=== PATIENT | female | born 1965 | race Caucasian/White ===

== ENCOUNTER 2017-11-01 09:00 | Outpatient (RCR) | payer OTHER, SELFPAY ==
--- NOTE | 2017-11-01 09:07 | BH.SGPN.GN ---
Number of participants: 6 Behaviors/Verbalizations/Mental Status: []Client alert and oriented, neatly dressed and groomed. Speech within normal limits. Good eye contact. Motor activity restless. Mood depressed and anxious, affect constricted, tearful. Thoughts linear and logical, no signs of hallucinations or delusions. Therapist reviewed clients symptom tracker to assess for intensity of mental health symptoms and identify risk for suicide. No signs of suicidal ideation, plan, or intent to date. Client Response/Progress/Benefit: []Client responded well to session, laughing and receptive to support from peers. Client reports feeling mixed emotions this morning, as client continues to struggle with hopelessness and thinking how can I deal with this. Client shared with the group that she had a stroke two years ago which turned my world upside down. Client reported she has been depressed since the stroke as client can no longer do the things she used to do due to tremors, double vision, and other medical challenges. Client stated she hopes to learn ways to make her new life meaningful and find new things to do. Client was receptive to emotional support and validation provided by therapist and peers. Clients first day of IOP, to continue to prevent decompensation and reduce depression.
--- NOTE | 2017-11-01 10:20 | BH.SGPN.GN ---
Behaviors/Verbalizations/Mental Status: []Pt eye contact good, casual dress, speech and tone appropriate, tremors due to stroke hx, thoughts linear and intact, no evidence of delusions or hallucinations, mood anxious. Client Response/Progress/Benefit: [] Pt passive participant, did not share her thoughts or ideas throughout group discussion appeared to listen to others. Pt did engage in group activity despite pt stating she didn't think she could do it with her tremors, but was able to participate more than she had expected. Pt seemed to connect with others about the importance and benefits of having a positive social support AEB pt nodding her head. Pt's passive participation could be attributed to it being pt's first day in IOP. Pt seemed to benefit from support by peers.
--- NOTE | 2017-11-01 13:52 | BH.PSA ---
Source of Information - Presenting Problems/Circumstances Problems, Referral Source, Mental Status, Client: Client is a 52-year-old female who was referred by her outpatient psychiatrist at [facility] due to worsening depression and anxiety symptoms. Client had a stroke in 2016 while getting ready for a 50km long distance race. Client stated the stroke ?completely flipped my world upside-down.? Client denies psychiatric symptoms prior to the stoke. Client?s mental, cognitive, and physical functioning have all been impacting since the stroke. Client currently endorses a depressed mood with anhedonia, loss of appetite, decreased energy, and isolation. Client shared ?I just sit at home and stare at the [place].? 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 Client reported ?I feel like a burden to my family.? Client endorses ruminative anxiety about her appearance, functioning, and inability to be the caregiver she wants to be. Client was cooperative during assessment, alert and oriented. Client has a tremor from the stroke causing restlessness. Client?s speech was slurred due to stroke and reports short-term memory issues. Psychiatric Presentation - Psych Issues & Need for Admission Psychiatric Issues:: Major depressive disorder single episode moderate F 33.1; Anxiety unspecified. Isolation, rumination, depressed mood, and anhedonia. Past Psychiatric History - Treatment Hx Treatment History: client currently sees Tatiana Hutson at [facility] for outpatient psychiatric care and Ashley at [facility]. Client has been seeing Ashley for about a year. Client has had previous medication trials but is unable to remember details. First hospitalization:: denies hospitalizations Most recent hospitalization:: denies hospitalizations Medication Trials:: Yes - Zoloft, Klonopin, Ativan ECT Therapy:: No Age of first mental health symptoms: Client denies mental health symptoms prior to her stroke. Client reported I was never depressed or anything before this. Client shared her mental health symptoms started almost two years ago after the CVA. Describe (age, circumstance, etc) any past hospitalizations: client denies history of suicide attempts and psychiatric hospitalizations. Current providers for mental health treatment (counselor, psychiatrist, director of casework, etc.): Client currently seeing Ashley at [facility]. Client is also seeing Tatiana Hutson at [facility] for psychiatric services. Development & Family of Origin - Childhood Significant Childhood Events: Client described her childhood as wonderful. Client was born and raised mostly in [place], but she did move around as a teenager and lived in [place] and [place] for some time in the 1980s due to her father's job. - Family Who currently lives in your home?: Client currently lives in [place] with her , Dash, and their dog Caldwell. Client identified their dog as one of her primary supports. Describe family composition:: Client described her family as close. Client has two older brothers, four children ranging from 22 years old to 32 years old, and nine grandchildren. Client reported she loves her children and grandchildren, but she often feels like a burden to them stating, I'm not the mother and grandmother they deserve due to client's limitations post stroke. Client has been twice. The first marriage lasted 25 years and her four children are from that marriage. Client is currently to Dash, and the two have been now for five years. Client described the relationship as ekaterina sharing the two met through their mutual love of running. - Family History Family Hx of Psychiatric or AOD Problems: Client denies family history of AOD and psychiatric problems. Ethnicity - Culture Do you identify yourself with any particular cultural, ethnic background, or community?: No - Sexuality Sexual Orientation: Heterosexual Spirituality - Hinduism Do you currently identify with any organized jain?: Church - Client and her attend [facility]. 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 Mental Status - Memory Recent Memory: Poor Remote Memory: Fair - Concentration Concentration: Fair - Eye Contact Eye Contact: Scans - Speech Speech: Soft - slurred due to stroke - Thought Process Thought Process: Ruminations Insight: Fair Judgment: Fair Behavior: Anxious - Client restless throughout due to a tremor from her stroke. - Orientation Orientation: Time, Person, Place, Situation - Appearance Appearance: Neat/clean - Mood Mood: Anxious, Depressed - Affect Affect: Constricted - Additional Information Significant Findings/Observations Checked Above:: CVA affected right side causing weakness, speech deficit, short-term memory difficulty, visual problems. Client has residual right-sided tremors and double vision. Suicide Assessment - Suicidal Ideation Have you ever felt like hurting yourself?: No Were you using ETOH/drugs at the time?: No Suicidal Intentional Rating Scale (SIRS): No suicidal thoughts (past or present) - Client denies suicidal thoughts, but reports passive thoughts of sharing, if I don't wake up tomorrow that would be okay. Client reports her jain and her family prevent her from even thinking about suicide. Physician Notification: If Active suicidal thoughts/Will not contract for safety is checked, contact physician and document in the Physician Notification section below. Violent Behavior/Abuse History - Homicidal Ideation Do you have any homicidal thoughts? If so, explain:: No Is there a known potential victim? If yes, who:: No - Abuse Have you ever been abused?: No - Life Events Are there any other significant life events?: Hardships - Client had a stroke in 2016 while training for a long distance race. She has grief associated with physical limitations and loss of activities including running and work. Client shared feeling like a burden as she has to rely more on others whereas before client was used to taking care of everyone. - Safety Do you ever feel threatened in your home? If yes, describe:: No Adult Social History - Age 18 to Present Describe your current support system:: Client identified her , dog, and family as primary supports. Client shared her [employer] used to be a bigger support system for client, but client has not got back to being as engaged as she used to be. Client stated her depression, grief from loss of independence and functioning post CVA, and fear of what others think of her speech and tremor keep client from engaging with her once strong supports. Substance Use - Substance Substance Use Type: Alcohol - one half glass of wine every 2 weeks., Caffeine - Consumes 2 cups of coffee and 2 sodas daily - Specific Drugs What specific drugs have you used?: alcohol and caffeine - Extent of Use What quantity of substances have you used?: Client consumes two-four caffeinated beverages a day and drinks half a glass of wine approximately twice a month. Client denies binge drinking or use of illicit drugs. Client reports she is trying to wean-off of all medications as client fears addiction and states not liking how she feels on medication. - Duration of Use How long have you used substances?: client unable to answer due to difficulty remembering. Client shared her caffeine intake has increased since the stroke due to feeling increased fatigue throughout the day. - Last Usage What is the date and situation you last used?: drank coffee this morning and consumed wine two weeks ago. - IV Substance Use Do you have a history of IV use?: none reported Leisure/Social Activities - Interests What do you enjoy or might be interested in learning about?: Client enjoys outdoor activities and rides a recumbent bike. Client shared she loves being with her dog and grandchildren. Client reports enjoying volunteer work. Client also reports some interest in starting up her workout/bible study group at [employer] called [employer]. Client shared she is not yet ready to take this on, but she is more open to the idea now. Education & Occupational Histo - Education What is your level of education?: Some College - Client attended [employer] in [place], where she was studying psychology. Client reported she did not graduate having left before her cole year started. 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 Client stated she is currently looking for a title department manager job to keep busy and help pay the bills. 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 Service - Service Have you ever been in the ?: No Legal History - Records Have you had any past legal charges?: No Do you have any current legal charges?: No Have you ever been incarcerated? If yes, describe:: No - Court Orders Have you had any past court orders for psychiatric treatment?: No Do you have a present court order for psychiatric treatment?: No Problem Checklist - Current Problem Areas Problem List: Nutritional/Eating pattern changes - decreased appetite, Depressed mood/sad - endorses depressed mood with anhedonia and decreased energy. Client shared she often feels like a burden to her family., Bereavement - Grief associated with physical limitations and loss of activities including running and work. 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 Client endorses rumination associated with what others think of her speech and tremors. Client shared people think I'm drunk., Inattention - Reports difficulty concentrating which she feels is residual effect of the CVA., Pertinent health issues - Client reports she was training for a 50 km long distance running race in [place] when she had sudden onset of stroke requiring 10 day medical hospitalization and rehab stay for 2 weeks and [place] prior to returning to [place]. CVA affected right side causing weakness, speech deficit, short-term memory difficulty, visual problems. She has residual right-sided tremors and double vision., Additional psychosocial stressors - loss of functioning, loss of independence, some financial stressors. Discharge Planning Needs - Anticipated Follow-Up Mental Health Center (Name/Phone Number):: [facility] Private Therapist/Psychiatrist:: Ashley Primary Care Physician: Chris Bishop Family and Caregiver Contacts:: Dash Garcia Release of Information Signed:: Yes - [phone] Community Agency Contacts: n/a Educational Technology Coordinator Name/Phone Number: n/a Refrigerating Technician's Assessment - Client's Needs What are the client's feelings about the program?: Client reported feeling unsure about this whole thing as client stated belief she does not know if she fits in at [facility]. Client reported I thought everyone here was going to be a stroke survivor. Client shared she is willing to give the experience a shot. What are the client's goals?: Client identified her goals for treatment to be finding new activities she can do, contributing more at home, reducing depression, and increasing self-compassion. What are the client's strengths?: Client is kind, intelligent, and determined to improve her mental health. Client demonstrates resilience and determination as client has regained some physical abilities back after her stroke through her hard work in both physical and speech therapy. Client continues to be active and spend time outdoors despite not being able to participate in the high intensity exercises she used to do. Client identifies her , dog, family, and friends as positive supports. Client reports being a motivated person and wants to find new ways to bring more purpose to her life. Diagnoses - Diagnoses Diagnosis #1:: Major depressive disorder single episode moderate F 33.1 Diagnosis #2:: Anxiety unspecified Interpretive Summary - Interpretive Summary Interpretive Summary: Client is a 52-year-old female who was referred by her outpatient psychiatrist at [facility] due to worsening depression and anxiety symptoms. Client had a stroke in 2016 while getting ready for a 50km long distance race. Client stated the stroke ?completely flipped my world upside-down.? Client shared before the stroke her life was ?perfect? and client shared she does not understand why this happened to her. Client denies psychiatric symptoms prior to the stoke and denies family history of mental health or AOD problems. Client?s mental, cognitive, and physical functioning have all been impacting since the stroke. CVA affected right side causing weakness, speech deficit, short-term memory difficulty, visual problems. Client has residual right-sided tremors and double vision Client currently endorses a depressed mood with anhedonia, loss of appetite, difficulty concentrating, decreased energy, and isolation. Client shared ?I just sit at home and stare at the [place].? 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 Client reported ?I feel like a burden to my family.? Client reports passive thoughts of such as ?if I didn?t wake up it would be okay.? Client denies suicidal ideation, plan, and intent. Client reports her family and jain are protective factors. Client denies use of illicit drugs or issues alcohol or prescription medications. Client reports anger and difficulty accepting her situation. Client endorses ruminative anxiety about her appearance, functioning, and inability to be the caregiver she wants to be. Client denies history of trauma or abuse. Client denies symptoms of naomie and obsessions and compulsions. Client denies history of disordered eating. Client attends a stroke support group and seeks individual counseling through [facility]. Treatment Plan Recommendations - Recommendations Guidelines: Special needs identified to be included in the development of an individualized treatment plan regarding past psychiatric history and treatment, developmental events, family relationships/events/culture, past and/or current educational, occupational, social, and residential experience, and legal status. Recommendations:: Admit to IOP as the structured setting is necessary to prevent decompensation and increase socialization. Medication risks and benefits discussed with IOP psychiatrist. Client encouraged caffeine reduction/abstinence by IOP psychiatrist. IOP psychiatrist also encouraged client to establish with neurologist.
--- NOTE | 2017-11-01 14:16 | BH.MDN ---
Multi-Disciplinary Note - Note 30-min Individual Time Started:: 11:25 Date: 11/01/17 Purpose of session/treatment goals addressed:: The purpose of this session was to build rapport and gather information on client's current symptoms, treatment goals, and stressors. Eye Contact:: Good Motor Activity:: Restless - Client reported restless leg is due to tremors from her stroke. Appearance:: Neat Speech:: Appropriate Mood:: Depressed Affect:: Constricted, Other - tearful Thoughts:: Linear, Logical, No evidence of hallucinations/delusions noted Staff Interventions:: Therapist used open-ended questions to explore client's current stressors, symptoms, and treatment goals. Therapist provided emotional support and validation while client expressed her emotions and challenges. Therapist used strengths perspective to empower client. Therapist provided client with insight on what to expect from IOP and individual therapy and introduced the concept of cognitive distortions. Client Response:: Client responded well to session, open to meeting with therapist. Client shared she has never been to mental health counseling before, but has gone through occupational and speech therapy before which client could use a baseline. Client reported she came to [facility] after being referred by her psychiatrist at [facility]. Client stated since her stroke 2 years ago she has struggled with depression and anxiety. Client became tearful stating, I used to be able to do so much and now I have to learn how to make a new life. Client expressed she used to be very active both physically and in the community, but now her tremors and other effects of the stroke keep client from fully engaging the way she used to. Client was receptive to validation and emotional support from therapist. Client shared she does still walk, play with her dog trail and ride her recumbent bike. 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 Client was receptive to gentle challenging from therapist and discussion of cognitive distortions and self-compassion. Client shared she has a hard time accepting that her physical limitations will be present for the rest of her life which leads to rumination and client thinking what kind of life is that? Client identified her goals for treatment to be finding new activities she can do, contributing more at home, reducing depression, and increasing self-compassion. Risks/Concerns:: Client reports feeling like a burden and shared she struggles with accepting that the rest of her life she will have physical limitations. Client stated twice I promise I'm not suicidal denying plan and intent as well. Client identified her as a reason to live. Progress Toward Goals/Plan:: No progress to document at this time, client's first day in IOP program. Client endorses a depressed mood, anhedonia, hopelessness, and anxiety. For these reasons client can benefit from IOP level of care to prevent decompensation and increase mood stability. Client and therapist to meet again individually next week. Time Stopped:: 11:50
--- NOTE | 2017-11-01 14:20 | BH.MTP_ITS ---
[facility] - Patient Information Program Physician:: Lois Mai Primary Therapist:: Daisy Clinton - Psychiatric Diagnoses Psychiatric Diagnoses:: Major depressive disorder single episode moderate;. Anxiety unspecified Diagnosis Code(s):: F 33.1 - Estimated LOS Estimated LOS (in weeks):: 6 Problem/Goal #1 - Problem/Goal #1 Stated Goal:: Client will reduce depression, feelings of hopelessness, and anhedonia as evidenced by a reduction in DSM-5 cross-cutting measure scores. Description of Barriers: Due to client's stroke, she has several limitations that impact her memory, ability to complete ADLs, and engagement in physical activity. Client reports her limitations exacerbate her depressive symptoms and cause client to feel like a burden. Client has not had mental health treatment in the past and appears to have limited insight to negative thought patterns, warning signs, and triggers. Client continues to grieve her loss of independence and functioning since the stroke and reports negative core beliefs of self. Additionally, client states having a hard time accepting this is how my life will be and appears to self-compare prior to the stroke which may create unrealistic expectations for herself that lead to rumination and negative self-talk. Functional Impact: Client is a 52-year-old female who presents to the behavioral medicine IOP with chief complaint of depression and anxiety. Client had a stroke in 2016 and client shared ?my whole world got turned upside down.? Client reports grief associated with loss of independence and physical ability. Client endorses a depressed mood, anhedonia, feelings of being a burden, loss of appetite, rumination, and negative thinking. Client shared she has been struggling with depression since the stroke and reports she has been having a hard time accepting that ?the rest of my life I?ll be like this.? 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 due to her speech. Client stated these factors further contribute to her depression, anxiety, and negative core beliefs. Goal Relevant Strengths/Supports: Client is kind, intelligent, and determined to improve her mental health. Client demonstrates resilience and determination as client has regained some physical abilities back after her stroke through her hard work in both physical and speech therapy. Client continues to be active and spend time outdoors despite not being able to participate in the high intensity exercises she used to do. Client identifies her , dog, family, and friends as positive supports. Client reports being a motivated person and wants to find new ways to bring more purpose to her life. - Objectives Objective #1 Stated Objective: Client will decrease depressive symptoms as evidenced by lowering the score on the DSM 5 cross-cutting measure. Interventions: Therapist will help client identify her triggers and teach client various coping strategies to effectively cope with depressive symptoms. Therapist will help client explore social activities and hobbies that provide client a sense purpose and enjoy. Discharge Criteria: Client will have reached this goal when her DSM 5 cross cutting score for depression has been decreased. Target Date: 01/13/18 Review Date: 12/01/17 Status: open Objective #2 Stated Objective: Client will identify and replace 2-3 negative thinking patterns that contribute to increased depressive symptoms. Interventions: Through groups and individual therapy, client will be provided with education on cognitive distortions, mistaken beliefs, and identifying and combating negative self-talk. Therapist will help client explore connection between thoughts, feelings, and actions. Therapist will teach client about maintenance cycles and help client learn how to break negative maintenance cycles and promote healthy maintenance cycles. Discharge Criteria: Client will be able to identify 2-3 negative thinking patterns and be able to effectively stop, challenge, or cope with those negative thoughts. Target Date: 01/13/18 Review Date: 12/01/17 Status: open Problem/Goal #2 - Problem/Goal #2 Stated Goal:: Client will reduce anxiety as evidenced by a decrease on the DSM- 5 cross-cutting symptom measure and decrease ruminative thoughts on a daily basis. Description of Barriers: Due to client's stroke, she has several limitations that impact her memory, ability to complete ADLs, and engagement in physical activity. Client reports her limitations exacerbate her depressive symptoms and cause client to feel like a burden. Client has not had mental health treatment in the past and appears to have limited insight to negative thought patterns, warning signs, and triggers. Client continues to grieve her loss of independence and functioning since the stroke and reports negative core beliefs of self. Additionally, client states having a hard time accepting this is how my life will be and appears to self-compare prior to the stroke which may create unrealistic expectations for herself that lead to rumination and negative self-talk. Functional Impact: Client is a 52-year-old female who presents to the behavioral medicine [facility] with chief complaint of depression and anxiety. Client had a stroke in 2016 and client shared ?my whole world got turned upside down.? Client reports grief associated with loss of independence and physical ability. Client endorses a depressed mood, anhedonia, feelings of being a burden, loss of appetite, rumination, and negative thinking. Client shared she has been struggling with depression since the stroke and reports she has been having a hard time accepting that ?the rest of my life I?ll be like this.? 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 due to her speech. Client stated these factors further contribute to her depression, anxiety, and negative core beliefs. Goal Relevant Strengths/Supports: Client is kind, intelligent, and determined to improve her mental health. Client demonstrates resilience and determination as client has regained some physical abilities back after her stroke through her hard work in both physical and speech therapy. Client continues to be active and spend time outdoors despite not being able to participate in the high intensity exercises she used to do. Client identifies her , dog, family, and friends as positive supports. Client reports being a motivated person and wants to find new ways to bring more purpose to her life. - Objectives Objective #1 Stated Objective: Client will identify 2-3 anxiety producing thoughts that she tends to ruminate on, and reduce this by increasing self-awareness and use of coping skills. Interventions: Therapist will help client identify internal struggles client faces, including anxiety related to her physical limitations, social situations , and other identified stressors. Therapist will teach client about the vicious cycle of anxiety and the connection between thoughts, emotions, and behaviors. Therapist will teach client various coping strategies to reduce ruminations and anxiety. Therapist will help client increase self-awareness as well as assist client in gaining awareness of the costs and benefits of ruminating. Discharge Criteria: Client will have achieved this goal when her DSM-5 cross- cutting symptoms reflect a reduced anxiety score. Additionally, client will have met this goal when she is able to verbalize anxiety-producing thoughts and identify 2-3 ways to cope with them. Target Date: 01/13/18 Review Date: 12/01/17 Status: open Objective #2 Stated Objective: Client will reduce anxious symptoms as evidenced by decrease in score on DSM 5 cross-cutting measure. Interventions: Through group and individual sessions client will learn healthy coping strategies, increase awareness of anxious thinking pattens and triggers to anxiety, and learn how to more effectively manage symptoms daily. Discharge Criteria: Client has met this goal when the DSM 5 cross cutting measure for anxiety have decreased. Target Date: 01/13/18 Review Date: 12/01/17 Status: open
--- NOTE | 2017-11-01 14:20 | BH.MDN_ITS ---
Multi-Disciplinary Note - Note 30-min Individual Time Started:: 11:25 Date: 11/01/17 Purpose of session/treatment goals addressed:: The purpose of this session was to build rapport and gather information on client's current symptoms, treatment goals, and stressors. Eye Contact:: Good Motor Activity:: Restless - Client reported restless leg is due to tremors from her stroke. Appearance:: Neat Speech:: Appropriate Mood:: Depressed Affect:: Constricted, Other - tearful Thoughts:: Linear, Logical, No evidence of hallucinations/delusions noted Staff Interventions:: Therapist used open-ended questions to explore client's current stressors, symptoms, and treatment goals. Therapist provided emotional support and validation while client expressed her emotions and challenges. Therapist used strengths perspective to empower client. Therapist provided client with insight on what to expect from IOP and individual therapy and introduced the concept of cognitive distortions. Client Response:: Client responded well to session, open to meeting with therapist. Client shared she has never been to mental health counseling before, but has gone through occupational and speech therapy before which client could use a baseline. Client reported she came to [facility] after being referred by her psychiatrist at [facility]. Client stated since her stroke 2 years ago she has struggled with depression and anxiety. Client became tearful stating, I used to be able to do so much and now I have to learn how to make a new life. Client expressed she used to be very active both physically and in the community , but now her tremors and other effects of the stroke keep client from fully engaging the way she used to. Client was receptive to validation and emotional support from therapist. Client shared she does still walk, play with her dog trail and ride her recumbent bike. 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 Client was receptive to gentle challenging from therapist and discussion of cognitive distortions and self-compassion. Client shared she has a hard time accepting that her physical limitations will be present for the rest of her life which leads to rumination and client thinking what kind of life is that? Client identified her goals for treatment to be finding new activities she can do, contributing more at home, reducing depression, and increasing self- compassion. Risks/Concerns:: Client reports feeling like a burden and shared she struggles with accepting that the rest of her life she will have physical limitations. Client stated twice I promise I'm not suicidal denying plan and intent as well. Client identified her as a reason to live. Progress Toward Goals/Plan:: No progress to document at this time, client's first day in IOP program. Client endorses a depressed mood, anhedonia, hopelessness, and anxiety. For these reasons client can benefit from IOP level of care to prevent decompensation and increase mood stability. Client and therapist to meet again individually next week. Time Stopped:: 11:50
--- NOTE | 2017-11-02 09:05 | BH.SGPN.GN ---
Behaviors/Verbalizations/Mental Status: [] Client alert and oriented, remained well engaged throughout. Eye contact remained clear inconsistent, appropriate motor activity-some shaking, and rocking in seat. Client appearance was clean and casual, appropriate grooming and hygiene. Speech remain within normal limits. Mood was anxious and depressed, expressed as nervous. Affect congruent with mood. Thoughts linear and logical, no signs of hallucinations or delusions. Therapist reviewed clients symptom tracker to assess for intensity of mental health symptoms and identify risk for suicide. No signs of suicidal ideation, plan, or intent to date. Client Response/Progress/Benefit: [] Client second day in IOP program and still adjusting to the setting. She did well to openly provide input and discuss current thoughts, feelings, and symptoms. Client shared with the group ongoing to call T's in managing the aftereffects of a stroke she had had 2 years prior. He discussed often feeling isolated and alone in her condition as although she can share stressors and frustrations with others she feels she cannot be really understood. Client discussed feeling as though her whole world has been flip-flopped and went on to describe previously being very active and well engaged in the community and now struggling with constant exhaustion has resulted in increased social isolation. Client well to work with therapist on identifying areas in her new way of life that she is able to find aakash such as riding her tricycle, using humor as a coping mechanism, and taking walks. Client benefited from being able to discuss mental health symptoms and emotions in the supportive group environment. Recommended continued IOP in order to improve client coping mechanisms, emotion regulation skills, and understanding of mental health symptoms, as well as to prevent decompensation.
--- NOTE | 2017-11-02 10:13 | BH.SGPN.GN ---
Behaviors/Verbalizations/Mental Status: []Client alert and oriented, neatly dressed and groomed. Speech within normal limits. Good eye contact. Motor activity restless. Mood depressed and anxious, affect constricted. Thoughts linear and logical, no signs of hallucinations or delusions. Client Response/Progress/Benefit: []Client responded well to session, active participant. Client appeared to connect with the quote sharing, we tell ourselves we cant do stuff and then we dont try. Client created a visual representation of her current mental wellness reality in which client is stuck in bed, sleeping, depressed, isolating, and scared to leave her comfort zone. Client reported her desired reality is to get out of the house more, walk every day, be more social again, and do more of what she used to enjoy. Client stated her desired reality is attainable, but depression and her physical limitation make it challenging to reach clients desired reality. Client appeared to benefit from gaining supportive statements from peers and by increasing awareness of her current emotional state. Client shared more in group about her mental health struggles which demonstrates progress. Client to continue IOP to prevent decompensation and reduce depression.
--- NOTE | 2017-11-02 11:15 | BH.SGPN.GN ---
Behaviors/Verbalizations/Mental Status: []Client alert and oriented, neatly dressed and groomed. Speech within normal limits. Good eye contact. Motor activity restless. Mood anxious, affect congruent. Thoughts linear and logical, no signs of hallucinations or delusions. Client Response/Progress/Benefit: []Client responded well to session, participating in the activity despite reporting anxiety and self-doubt. Client identified obstacles keeping client from achieving mental wellness to be tired all the time, feeling nervous, tremors, fear of failure, and not knowing what to do to fill her time. Client did well in the activity to challenge her self-doubt and was able to successfully finish the task. Client provided support and strategies to overcome barriers. Client reported you really do have to rely on your supports sometimes. Client created a list of strategies to overcome her barriers such as using deep breathing, positive self-talk, challenging her unrealistic expectations of success. Client appeared to benefit from using in the moment problem-solving strategies to overcome barriers and show client she is capable of overcoming things that make her anxious. Progress noted in clients increased engagement and self-awareness. Client to continue IOP to prevent decompensation and reduce depression.
--- NOTE | 2017-11-04 09:10 | BH.SGPN.GN ---
Behaviors/Verbalizations/Mental Status: [] Eye contact is fair. Motor activity is restless due to tremors (medical related). Appearance is casual. Speech is baseline (pt has slur due to stroke). Mood is anxious. Affect is anxious. Thoughts are linear and logical. No evidence of hallucinations or delusions noted. Client Response/Progress/Benefit: [] Pt was an active participant in group discussion. Provided appropriate feedback. Emotion for today is relief. Shared with the group that she went to an interview and got a job. Shared that her anxiety was pretty significant however she was proud of herself for following through. Was able to identify that while this seems small going to the interview and starting a job is a significant step to improving MH wellness. Stated I'm learning how to start my new life since my stroke. She shared with the group her consistent anxiety while in public which has led to isolation. Shared that due to her tremors, difficulty walking, and slurred speech people often assume she is intoxicated or has some developmental issue. Reports that this has led to being self-conscious and avoiding public places. Also frustrating to constantly explain to others her tremors and slurred speech. Group provided support and encouragement which she benefited from. Progress noted per pt report. Overcame anxiety and depression to follow through with job interview. Will continue in IOP to decrease isolation, decrease anxiety/depression, and improve functioning. Narrative Note: []
--- NOTE | 2017-11-04 11:16 | BH.SGPN.GN ---
Behaviors/Verbalizations/Mental Status: [Client alert and orient x3, well engaged. She maintained good eye contact throughout. Client motor activity appropriate to baseline - restlessness/shaking due to client prior medical dx. Appearance was clean and casual, grooming and hygiene well maintained. Speech remained within normal limits for baseline - slurred speech due to medical dx. Mood was euthymic, anxious - client making jokes at own expense, engaging with fellow participants. affect constricted. Thoughts remained linear and logical, void of observable hallucination or delusions. ] Client Response/Progress/Benefit: [Client again was still adjusting to group environment as this is her first week, however, she did well to engage in the session and was an active participant in both activity and discussion conponents of the group. CLient appeared to benefit from the survival activity challenging participants to identify as a group what to eliminate from a set of objects in a hypothetically high stakes situation. Client identified herself as utilizing the collaborative conflict resolution style; however, reflected upon her use of competing styles in her own personal life. She shared that most times she starts out as collaborating but can become competing depending upon the situation and how important the outcome is to her. Client displaying progress in her ability to begin internalizing tx concepts and think about tx content outside of group environment. Recommended continued IOP to prevent decompensation and continue to work with client on identifying and utilizing strategies for management of depressive sx. ] Narrative Note: []
--- NOTE | 2017-11-04 15:12 | PCM.HP.BLA ---
History and Physical Identifying information Patient is a 52-year-old female who presents to the behavioral medicine [facility] with chief complaint of depression and anxiety. I had a stroke and it through my world into a tail went. History is been obtained per interview with patient, discussion with staff, review of chart. Case discussed with treatment team. History of present illness Patient is a 52-year-old female who presents to the the [facility] with chief complaint of depression and anxiety. She denies history of psychiatric symptoms prior to a CVA October 03, 2015. She reports she was training for a 50 km long distance running race in [place] when she had sudden onset of stroke requiring 10 day medical hospitalization and rehab stay for 2 weeks and [place] prior to returning to [place]. CVA affected right side causing weakness, speech deficit, short-term memory difficulty, visual problems. She has residual right-sided tremors and double vision. She has grief associated with physical limitations and loss of activities including running and work. She endorses depressed mood with anhedonia decreased energy and decreased appetite. She has difficulty concentrating which she feels is residual effect of the CVA. She has ruminative anxiety stating I worry that I am a burden. She has had 3 or 4 panic attacks since the CVA but none recent. She denies suicidal or homicidal ideation. Denies hallucinations or symptoms consistent with ptosis. Denies symptoms consistent with naomie. Denies obsessions or compulsions. Denies history of eating disorder. Denies history of abuse. Past psychiatric history Patient denies previous psychiatric hospitalizations or suicide attempts. She currently sees Eleni at [facility] for outpatient psychiatric care. She is had previous medication trials but is unable to remember details. Substance use history Patients denies smoking or use of illicit drugs. She consumes one half glass of wine every 2 weeks. Consumes 2 cups of coffee and 2 sodas daily Past medical history CVA Hysterectomy PCP Dr. Bishop Review of systems No fevers chills nausea vomiting chest pain dyspnea. She has residual right-sided weakness and tremor. She has complained of double vision residual from the stroke. All other systems reviewed and negative except as above. Current medications Zoloft 75 mg p.o. daily which she has been taking for the last 8 weeks. She will increase it to 100 mg on November 06. Klonopin 0.5 mg p.o. nightly per neurology for tremor Ativan 0.5 mg 1-2 p.o. daily as needed-reports taking only 1 daily Xarelto 15 mg daily Omeprazole 20 mg daily Family medical psychiatric history Denies Developmental social history Born and raised in [place]. 2 older brothers. She is the youngest of 3 children. 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 Describes growing up as wonderful. Completed high school. Attended 2 years of [employer] [place] but did not finish. 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 Has been twice. First marriage lasted 25 years. She has 4 children from the first marriage. She is currently her second for the past 5 years. He is administered [employer]. She describes the marriage is ekaterina. She continues to seek outdoor activities and rides a recumbent bike. Legal history none Mental status exam vital signs reviewed per nursing database and discussed with nursing. Alert and oriented . No acute distress. Ambulatory with slow deliberate gait and station. Appears stated age. Casually dressed and groomed. Appropriate hygiene. Cooperative with interview. Good eye contact. Right-sided tremor residual from CVA. Mood depressed. Affect congruent. Speech is clear and with regular rate and rhythm. Language fluent. Thought process organized. Associations logical. Thought content significant for ruminative anxiety and themes of depression. No suicidal or homicidal ideation related or detected.. No symptoms consistent with psychosis noted or detected. Immediate recent and remote memory grossly intact. Attention and concentration are fair. Estimated intelligence and fund of knowledge average. Judgment and insight fair. Labs and testing Lab work will be requested from primary care physician. Further lab work will be obtained as needed. Diagnosis Major depressive disorder single episode moderate F 33.1 Anxiety unspecified Rule out PTSD The structured setting is necessary to prevent decompensation. Risk-benefit alternatives of medications discussed with patient. Patient acknowledges understanding. Continue Zoloft 75 mg daily. Increase to 100 mg daily as planned on 11/06. Continue Klonopin 0.5 mg nightly. Reduce Ativan to 0.25 mg daily as needed with goal of discontinuation. Caffeine reduction/abstinence encouraged. Encouraged to establish with outpatient psychiatric providers for when IOP complete. Encouraged to establish with neurologist. Patient acknowledges understanding and is in agreement with plan. Feels able to maintain safety. Agrees to seek help or emergency care feeling unsafe to self or others.
--- NOTE | 2017-11-04 15:24 | HP.PCM_ITS ---
History and Physical Identifying information Patient is a 52-year-old female who presents to the behavioral medicine [facility] with chief complaint of depression and anxiety. I had a stroke and it through my world into a tail went. History is been obtained per interview with patient, discussion with staff, review of chart. Case discussed with treatment team. History of present illness Patient is a 52-year-old female who presents to the [facility] medicine [facility] with chief complaint of depression and anxiety. She denies history of psychiatric symptoms prior to a CVA October 03, 2015. She reports she was training for a 50 km long distance running race in [place] when she had sudden onset of stroke requiring 10 day medical hospitalization and rehab stay for 2 weeks and [place] prior to returning to [place]. CVA affected right side causing weakness, speech deficit, short-term memory difficulty, visual problems. She has residual right-sided tremors and double vision. She has grief associated with physical limitations and loss of activities including running and work. She endorses depressed mood with anhedonia decreased energy and decreased appetite. She has difficulty concentrating which she feels is residual effect of the CVA. She has ruminative anxiety stating I worry that I am a burden. She has had 3 or 4 panic attacks since the CVA but none recent. She denies suicidal or homicidal ideation. Denies hallucinations or symptoms consistent with ptosis. Denies symptoms consistent with naomie. Denies obsessions or compulsions. Denies history of eating disorder. Denies history of abuse. Past psychiatric history Patient denies previous psychiatric hospitalizations or suicide attempts. She currently sees Eleni at [facility] for outpatient psychiatric care. She is had previous medication trials but is unable to remember details. Substance use history Patients denies smoking or use of illicit drugs. She consumes one half glass of wine every 2 weeks. Consumes 2 cups of coffee and 2 sodas daily Past medical history CVA Hysterectomy PCP Dr. Bishop Review of systems No fevers chills nausea vomiting chest pain dyspnea. She has residual right- sided weakness and tremor. She has complained of double vision residual from the stroke. All other systems reviewed and negative except as above. Current medications Zoloft 75 mg p.o. daily which she has been taking for the last 8 weeks. She will increase it to 100 mg on November 06. Klonopin 0.5 mg p.o. nightly per neurology for tremor Ativan 0.5 mg 1-2 p.o. daily as needed-reports taking only 1 daily Xarelto 15 mg daily Omeprazole 20 mg daily Family medical psychiatric history Denies Developmental social history Born and raised in [place]. 2 older brothers. She is the youngest of 3 children. 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 Describes growing up as wonderful. Completed high school. Attended 2 years of [employer] [place] but did not finish. 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 Has been twice. First marriage lasted 25 years. She has 4 children from the first marriage. She is currently her second for the past 5 years. He is administered [employer]. She describes the marriage is ekaterina. She continues to seek outdoor activities and rides a recumbent bike. Legal history none Mental status exam vital signs reviewed per nursing database and discussed with nursing. Alert and oriented . No acute distress. Ambulatory with slow deliberate gait and station. Appears stated age. Casually dressed and groomed. Appropriate hygiene. Cooperative with interview. Good eye contact. Right-sided tremor residual from CVA. Mood depressed. Affect congruent. Speech is clear and with regular rate and rhythm. Language fluent. Thought process organized. Associations logical. Thought content significant for ruminative anxiety and themes of depression. No suicidal or homicidal ideation related or detected.. No symptoms consistent with psychosis noted or detected. Immediate recent and remote memory grossly intact. Attention and concentration are fair. Estimated intelligence and fund of knowledge average. Judgment and insight fair. Labs and testing Lab work will be requested from primary care physician. Further lab work will be obtained as needed. Diagnosis Major depressive disorder single episode moderate F 33.1 Anxiety unspecified Rule out PTSD The structured setting is necessary to prevent decompensation. Risk-benefit alternatives of medications discussed with patient. Patient acknowledges understanding. Continue Zoloft 75 mg daily. Increase to 100 mg daily as planned on 11/06. Continue Klonopin 0.5 mg nightly. Reduce Ativan to 0.25 mg daily as needed with goal of discontinuation. Caffeine reduction/abstinence encouraged. Encouraged to establish with outpatient psychiatric providers for when IOP complete. Encouraged to establish with neurologist. Patient acknowledges understanding and is in agreement with plan. Feels able to maintain safety. Agrees to seek help or emergency care feeling unsafe to self or others.
--- NOTE | 2017-11-04 15:24 | BH.DR.ITP ---
Initial Treatment Plan - Patient Information Visit Information: ADMISSION DATE: EXPECTED LOS: 4-6 weeks Diagnoses:: Major depressive disorder F 33.1. Anxiety - Problems/Symptoms Problem #1:: Depression Symptom:: Sad mood, anhedonia, decreased energy, biologic disruption of appetite Problem #2:: Anxiety Symptom:: Rumination
--- NOTE | 2017-11-08 09:12 | BH.SGPN.GN ---
Behaviors/Verbalizations/Mental Status: [Client alert and orient x3. Client maintained good eye contact throughout. Motor activity appropriate to baseline - restless due to client medical dx, at times experiencing tremors. Appearance was casual and comfortable, grooming and hygiene well kempt. Speech within normal limits. Mood was anxious and irritable, affect constricted, client making jokes at own expense to deflect from current frustrations. Thoughts remained linear and logical, no present hallucinations or delusions. Therapist reviewed clients symptom tracker to assess for intensity of mental health symptoms and identify risk for suicide. No signs of suicidal ideation, plan, or intent to date.] Client Response/Progress/Benefit: [Client responded positively to session and was engaged with fellow participants throughout. This was evidenced by client laughing and making jokes with the group as well as sharing current stressors and processing with the group. She discussed feeling frustrated with her ongoing medical complications but was proud of her ability to follow through with challenging herself to be social throughout the weekend.client expressed that she was glad she did not isolate or stay home but felt emotionally and physically exhausted afterward. Client indicated continuous struggles with her ability to accept and learn to find meaning in her new, physically restricted lifestyle. Client benefitted from support of the group environment and the time she had allotted to specifically vent current frustrations and express emotions. Progress in client openness to share with the group. Recommended continued IOP tx to prevent decompensation and work with client on increasing understanding of the influences mental health symptoms have on other areas of her life.] Narrative Note: []
--- NOTE | 2017-11-08 10:30 | BH.SGPN.GN ---
Behaviors/Verbalizations/Mental Status: []Client alert and oriented, neatly dressed and groomed. Eye contact good. Motor activity restless. Speech within normal limits. Affect congruent, mood anxious. Thoughts linear, logical, no signs of hallucinations or delusions. Client Response/Progress/Benefit: []Client responded well to session, providing good insight to discussion and able to challenge negative self-talk and participate in activity. Client appeared to connect with the quote stating, if you dont bend you just break. Client connected the activity to life, sharing one has to constantly juggle numerous stressors which can be chaotic. Client reported resilience is needed to juggle stressors and to bouncing back. Client helped peers identify the factors that contribute to building resilience such as supportive connections, confidence, and courage. Client shared it is important to have confidence that things will get better and you can make it through. Client appeared to benefit from increasing awareness of resilience and the factors that help build a resilient personality. Progress noted as shown by clients improved engagement in group. Client to continue IOP as she continues to endorse depressed mood and negative thinking.
--- NOTE | 2017-11-08 11:30 | BH.SGPN.GN ---
Behaviors/Verbalizations/Mental Status: []Client alert and oriented, neatly dressed and groomed. Eye contact good. Motor activity restless. Speech within normal limits. Affect congruent, mood euthymic. Thoughts linear, logical, no signs of hallucinations or delusions. Client Response/Progress/Benefit: []Client responded well to session, receptive to positive statements from peers. Client engaged in activity, demonstrating resilient traits as shown by her ability to complete the activity despite physical limitations and negative self-talk. With therapist elicitation, client recognized she may discredit herself at times and sell herself short. Client connected the stress ball to a resilient personality because the stress ball retakes its shape after great stress. Client identified personal resilience traits such as courage, using supports, and grandchildren to help client maintain resilience despite hardships. Client shared it was nice to hear that people see resilience in me because its hard to see it in myself. Client appeared to benefit from using in the moment coping skills to challenge self-deprecating talk and from receiving positive statements from peers. Progress noted as client reports improved outlook and has increased engagement in group, but continues to struggle with negative thinking, isolation, and anhedonia. Client to continue IOP to prevent decompensation and promote mood stability.
--- NOTE | 2017-11-09 09:08 | BH.SGPN.GN ---
Behaviors/Verbalizations/Mental Status: []Client alert and oriented, neatly dressed and groomed. Eye contact good. Motor activity restless, tremor. Speech within normal limits. Affect full, mood euthymic, became tearful when talking about gratitude and supports. Thoughts linear, logical, no signs of hallucinations or delusions. Reviewed clients symptom tracker, no signs of suicidal ideation, plan, or intent as of 11/09/17. Client Response/Progress/Benefit: []Client responded well to session, providing positive feedback to peers. Client reports feeling optimistic today as client is starting to realize she can make progress and client has made supportive connections in IOP. Client reported it's empowering for me to see all the obstacles I have overcome since day one here. Client shared with a group member struggling with anxiety and depression that challenging negatives and focusing on the positives has helped client adjust her outlook on mental health and progress. Client stated she continues to struggle with anxiety, negative thinking, and acceptance of her physical limitations, but client demonstrated progress by sharing I don't want to be negative about it anymore. Client appeared to benefit from reflecting on her change in outlook and use of healthy coping skills. Progress noted as shown by client's improved mood, but continues to struggle with negative thoughts of self and anhedonia. Client to continue IOP to prevent decompensation and increase mood stability.
--- NOTE | 2017-11-09 10:15 | BH.SGPN.GN ---
Behaviors/Verbalizations/Mental Status: [Client receptive of session, alert and orient x3. She was an active participant in discussion. Client maintained consistent eye contact throughout. Motor activity appeared appropriate to baseline - tremors associated with client physical restrictions. Appearance was casual, grooming and hygiene well maintained. Speech within normal limits - some slurring associated with medical dx. Mood was anxious, reflective. affect euthymic - congruent with mood. Thoughts remained linear and logical, with no present hallucinations or delusions.] Client Response/Progress/Benefit: [Client responded well to session and was engaged throughout. She discussed feeling as though the topic of challenging negative thoughts was an area that she particularly struggles with. Client expressed that she often believes that she has no control over her current situation which makes it hard to find positives. She benefitted from the discussion regarding the locus of control and how our reactions to external factors can impact mental health. Client shared that she often struggles with thoughts of I cant do this or Im not what I used to be that continue to maintain her depression. She is displaying progress in her ability to identify areas of distorted thinking that impact mental health symptoms. Recommended continued IOP tx to promote continued progress in managing symptoms as well as improving levels of insight regarding mental health. ] Narrative Note: []
--- NOTE | 2017-11-09 11:25 | BH.SGPN.GN ---
Behaviors/Verbalizations/Mental Status: [Client eye contact fair, casually dressed, motor activity restless - tremor, speech normal rate and tone - some slurring within Client normal baseline, mood anxious and depressed, congruent affect, thoughts linear and logical, no evidence of delusions or hallucinations.] Client Response/Progress/Benefit: [Client again responded well to session and was engaged throughout. She was able to understand and apply the CBT Cognitive Restructuring technique reviewed to the example provided. Client additionally worked to apply the knowledge to her own negative thoughts contributing to client maintenance cycle reviewed in previous group. She discussed that the thought of I cant do this often leads client to feel worthless and results in isolation. Client benefitted from working with the group to break down this thought and challenge how realistic it may actually be. Client expressed often falling victim to false beliefs that she will call. Displayed progress in her ability to begin identifying and replacing negative thoughts with alternative positive explanations. Recommended continued IOP tx to further promote implementation of thought challenging skills learned and to maintain stability.] Narrative Note: []
--- NOTE | 2017-11-11 09:09 | BH.SGPN.GN ---
Behaviors/Verbalizations/Mental Status: [Client receptive of session, alert and orient x3. Engaged throughout. Client maintained fair eye contact throughout. Motor activity displayed visible tremors of legs and fidgeting due to medical dx - appropriate for Client baseline. Appearance was casual, grooming and hygiene well maintained. Speech displaying slurring associated with medical dx - within client normal range. Mood was disappointed, affect dysthymic. Thoughts remained linear and logical, with no present hallucinations or delusions. Therapist reviewed clients symptom tracker to assess for intensity of mental health symptoms and identify risk for suicide. No signs of suicidal ideation, plan, or intent to date.] Client Response/Progress/Benefit: [client responded well to session and was able to openly discuss thoughts and feelings with the group as well as receptive of feedback. 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 She indicated that she had been increasingly anxious prior to starting the job. Client reflected upon finding that she is increasingly skeptical her own capabilities following her stroke two years ago. She appeared to benefit from the support of the group environment and positive feedback provided. Client recommended continued IOP tx to prevent decompensation and work on improving management of mental health symptoms through ongoing application of tx concepts learned. ] Narrative Note: []
--- NOTE | 2017-11-11 11:32 | BH.MDN ---
Multi-Disciplinary Note - Note 60-min Individual Time Started:: 10:28 Date: 11/11/17 Purpose of session/treatment goals addressed:: The purpose of this session was to gather information on client's current stressors, symptoms, supports, and mental health history. Another goal was to teach client the cognitive distortions to increase awareness of negative thought patterns. Eye Contact:: Good Motor Activity:: Restless Appearance:: Neat Speech:: Appropriate, Other - speech impacted from stroke Mood:: Euthymic, Other - tearful when talking about family and functioning Affect:: Congruent Thoughts:: Linear, Logical, No evidence of hallucinations/delusions noted Staff Interventions:: Therapist used open-ended questions to explore client's supports, symptoms, stressors, and mental health history. Therapist used active listening and validation as client verbalized factors contributing to client's depression. Therapist taught client the most common cognitive distortions and helped client identify which ones she most frequently uses. Therapist and client discussed the connection between thoughts, emotions, and behaviors. Therapist used strengths perspective and gave client homework to increase awareness of distortions and identify three positives over the weekend. Client Response:: Client responded well to session, open to meeting with therapist. Client shared when I first started here I thought it didn't belong at all, but now I look forward to coming. Client reported she recently had an appointment with her outpatient counselor, who told client she can see changes in her mood and outlook. Client stated she used to have a negative outlook on her life because of her stroke, but now client wants to be positive. Client talked about her mental health history, stating she had no depression or anxiety prior to her stroke. Client shared since her stroke she has been depressed with anhedonia, sad mood, and passive thoughts of such as if I don't wake up tomorrow that's fine. Client denies suicidal ideation, plan, and intent. Client also described herself as a worrier with anxiety about multiple stressors. Client shared she used to be very active in her [employer] and community but has withdrawn from these supports since her stroke. Client reported interest in returning to these supports, sharing now I don't think that's out of my future. Client stated her biggest ongoing problem is filling her time with pleasurable and meaningful things. With therapist elicitation client set a goal for returning to [employer] in a few weeks. Client was receptive to discussing and processing the cognitive distortions. Client identified mind-reading, disqualifying the positives, and shoulds as the ones she uses most often. Client recognizes when she has distorted thoughts client feels more anxious or depressed. Client agreed to be aware of distortions used over the weekend and to identify three positives. Risks/Concerns:: No risks or concerns to document at this time. Client denies suicidal ideation, plan, and intent as of 11/11/17. Client future oriented as evidenced by her report of wanting to go back to [employer]. Progress Toward Goals/Plan:: Client demonstrating progress towards treatment goals as she reports improved energy, outlook, and reports I actually look forward to coming to group. Client shared she has been taken off three meds within the last week, which client reports she is happy about and shared belief her improved energy is due to this as well. 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 Client continues to endorse a depressed mood, negative thinking, and anhedonia. Client to continue IOP to prevent decompensation and increase mood stability. Time Stopped:: 11:28
--- NOTE | 2017-11-11 11:35 | BH.MDN_ITS ---
Multi-Disciplinary Note - Note 60-min Individual Time Started:: 10:28 Date: 11/11/17 Purpose of session/treatment goals addressed:: The purpose of this session was to gather information on client's current stressors, symptoms, supports, and mental health history. Another goal was to teach client the cognitive distortions to increase awareness of negative thought patterns. Eye Contact:: Good Motor Activity:: Restless Appearance:: Neat Speech:: Appropriate, Other - speech impacted from stroke Mood:: Euthymic, Other - tearful when talking about family and functioning Affect:: Congruent Thoughts:: Linear, Logical, No evidence of hallucinations/delusions noted Staff Interventions:: Therapist used open-ended questions to explore client's supports, symptoms, stressors, and mental health history. Therapist used active listening and validation as client verbalized factors contributing to client's depression. Therapist taught client the most common cognitive distortions and helped client identify which ones she most frequently uses. Therapist and client discussed the connection between thoughts, emotions, and behaviors. Therapist used strengths perspective and gave client homework to increase awareness of distortions and identify three positives over the weekend. Client Response:: Client responded well to session, open to meeting with therapist. Client shared when I first started here I thought it didn't belong at all, but now I look forward to coming. Client reported she recently had an appointment with her outpatient counselor, who told client she can see changes in her mood and outlook. Client stated she used to have a negative outlook on her life because of her stroke, but now client wants to be positive. Client talked about her mental health history, stating she had no depression or anxiety prior to her stroke. Client shared since her stroke she has been depressed with anhedonia, sad mood, and passive thoughts of such as if I don't wake up tomorrow that's fine. Client denies suicidal ideation, plan, and intent. Client also described herself as ?a worrier? with anxiety about multiple stressors. Client shared she used to be very active in her [employer] and community but has withdrawn from these supports since her stroke. Client reported interest in returning to these supports, sharing now I don't think that's out of my future. Client stated her biggest ongoing problem is filling her time with pleasurable and meaningful things. With therapist elicitation client set a goal for returning to [employer] in a few weeks. Client was receptive to discussing and processing the cognitive distortions. Client identified mind- reading, disqualifying the positives, and shoulds as the ones she uses most often. Client recognizes when she has distorted thoughts client feels more anxious or depressed. Client agreed to be aware of distortions used over the weekend and to identify three positives. Risks/Concerns:: No risks or concerns to document at this time. Client denies suicidal ideation, plan, and intent as of 11/11/17. Client future oriented as evidenced by her report of wanting to go back to [employer]. Progress Toward Goals/Plan:: Client demonstrating progress towards treatment goals as she reports improved energy, outlook, and reports I actually look forward to coming to group. Client shared she has been taken off three meds within the last week, which client reports she is happy about and shared belief her improved energy is due to this as well. 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 Client continues to endorse a depressed mood, negative thinking, and anhedonia. Client to continue IOP to prevent decompensation and increase mood stability. Time Stopped:: 11:28
--- NOTE | 2017-11-11 12:05 | BH.NA ---
Physical Data - Height/Weight Height: 1.68 m Weight:: 51.256 kg Weight in Pounds: 113.0 lbs Current Medication Compliance - Medication Compliance Do you take your medication as prescribed?: Yes Do you need assistance with taking medication?: No Have you had side effects from medication?: No Nutritional History - Appetite Nutritional Instructions:: If client shows signs of a swallowing problem, weight change of 10 pounds or more in the last month, or is on a diabetic diet, the physician will review and request a dietitian consult, as appropriate. All unintentional weight loss will be referred to the physician for decision on need for dietitian consult. Describe your appetite:: Good Have you noticed a change in your eating habits lately?: No Additional nutritional information:: 1-2 caffeinated drinks daily (down from 4/day) Functional Assessment - Sleep Pattern Describe any problems with sleeping: Client describes difficulty falling and staying asleep. She is reliant on clonazepam QHS to fall asleep. - Activities Motor Activity:: Functional Sensory/Communication Assess - Dental Problems Do you have any dental problems?: None - Hearing Problems Do you have any hearing problems?: Adequate - Communication Problems Do you have difficulty understanding what people are saying?: No Do you have trouble putting your thoughts into words or expressing what you want to say?: No Do people ever have trouble understanding what you say?: No What is your primary language?: Turkish Learning Assessment - Education What is your level of education?: Some College - Learning Barriers Learning Barriers:: Ready to learn Medical Problems/History - Neurological Conditions Neurological: Other (See comments) - 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 If so, list type and date:: Yes - hysterectomy Substance Abuse - Substance Abuse Please describe substance abuse in the last 30 days:: ETOH use 1x/week. Denies illicit substance. Never a tobacco user. Mental Status Summary - Mental Status Significant Findings/Observations on Appearance and Mood:: Maryann is an alert and oriented 52-year-old female, who appears her stated age. She is cooperative with interview, though hesitant and does not elaborate on answers. She has a limping gait due to residual R-sided weakness from her stroke, minor tremor. Moderate depression, mild anxiety. Mood congruent affect. Circumstantial associations and blocking process, as client redirects to her stroke and medical issues; she also voices reasons why this program won't help her and no one understands what she is going through. No symptoms of delusions, denies hallucinations, SI, and HI. Suicide Assessment - Suicidal Ideation Are you currently or have you been suicidal in the past?: No Suicidal Intentional Rating Scale (SIRS): No suicidal thoughts (past or present) Physician Notification: If Active suicidal thoughts/Will not contract for safety is checked, contact physician and document in the Physician Notification section below. Assault History/Potential - History of Assault Do you have a history of assaulting someone?: No Physician Notification: If yes, notify physician and document notification date and time below. Past Psychiatric History - MH Treatment Hx Past Psychiatric Medications:: N/A Age of first mental health symptoms: 50 - following stroke Describe (age, circumstance, etc) any past hospitalizations: N/A Fall Risk Assessment - Age Age: Less than 60 - Mental Status Mental Status: Willing & able to ask for assistance when needed - Physical Status Physical Status: No problems - Impairments Impairments: None - Elimination Elimination: Continent AND independent - Gait or Balance Gait or Balance: Walks independently - Hx of Falls History of falls in the past 6 months: Near falls OR fear of falling - Medications/Substances Psychotropics:: Antidepressants, Anxiolytics (e.g. benzodiazepines) Medications/substances used within the past 24 hours or ordered to administer: 1-2 of the medications/substances listed above - Total Score Total Points:: 2 Physician Notification - Physician Notification Physician Notified: Lois Mai Method of Notification: Face to Face Comments: treatment planning discussion RN Summary of Impressions - Impressions Recommendations: Include psychiatric and medical issues, treatment planning recommendations, and discharge planning needs. Impressions: Psychiatric Issues: MDD, anxiety, PTSD? - Level of Care How do the client's current symptoms and functional deficits support need for this level of care?: Maryann notes that her depression has been progressively worsening since her CVA approximately 2 years ago, not responsive to medications. She endorses isolation, crying spells, and rumination. Client feels as though she has no purpose and avoids social interaction; she voices that she has lost her identity since the stroke, as she used to be a runner and loved to exercise. She is anxious about becoming dependent on benzos, but she needs them to sleep and manage her symptoms. IOP will promote gains and increase socialization, while preventing further decompensation.
--- NOTE | 2017-11-15 09:04 | BH.SGPN.GN ---
Behaviors/Verbalizations/Mental Status: [Client maintained good eye contact, casually dressed, motor activity WNL for baseline - tremor, speech normal rate and tone - slurring associated with preexisting medical dx, mood relaxed,euthymic - laughing with the group, congruent affect, thoughts linear and logical, no evidence of delusions or hallucinations. Therapist reviewed clients symptom tracker to assess for intensity of mental health symptoms and identify risk for suicide. No signs of suicidal ideation, plan, or intent to date.] Client Response/Progress/Benefit: [Client receptive of session and was engaged throughout. She discussed feeling both tired and relieved today as she had been busy all weekend and was glad to finally be slowing down. Client discussed attending her 's softball game on Tuesday and then watching her 3 y/o granddaughter for the remainder of the weekend. She described enjoying the time with her granddaughter but feeling worn out as a result. Client indicated being proud of how much she had accomplished and indicated that she had even been able to tell her that she would not be able to help with vacation [employer] school this week. Client benefitted from sharing both struggles and areas of progress with the group and receiving the support and encouragement in response. She is beginning to show increased ability to challenge self doubt and is recommended continued IOP tx to promote further progress in this area as well as prevent decompensation.] Narrative Note: []
--- NOTE | 2017-11-15 10:30 | BH.SGPN.GN ---
Behaviors/Verbalizations/Mental Status: []Client alert and oriented, neatly dressed and groomed. Eye contact good. Motor activity restless. Speech within normal limits. Affect constricted, mood anxious, irritable. Thoughts linear, logical, no signs of hallucinations or delusions. Client Response/Progress/Benefit: []Client responded well to first half session, providing good insight to discussion. Client then became withdrawn and reported feeling overwhelmed. Client appeared to connect with the quote, sharing, if we think negative we create negative you have to be positive. Client contributing to the discussion of automatic thoughts and how negative automatic thoughts can impact emotions and behaviors. Client listened as the group identified the common cognitive distortions, but she appeared overwhelmed by the posters as evidenced by her restless body language and facial expression. Client shared she uses should, musts and coulds as well as disqualifying the positives. Client appeared to benefit from gaining awareness of the cognitive distortions and how negative thinking impacts mental health and functioning. Client appears to be progressing as evidenced by her report of increased positive thinking, but she continues to struggle with using coping skills to manage anxiety and discomfort. Client to continue IOP to increase emotional regulation and prevent decompensation.
--- NOTE | 2017-11-15 11:33 | BH.SGPN.GN ---
Behaviors/Verbalizations/Mental Status: []Client alert and oriented, neatly dressed and groomed. Eye contact good. Motor activity restless. Speech within normal limits. Affect congruent, mood anxious. Thoughts linear, logical, no signs of hallucinations or delusions. Client Response/Progress/Benefit: []Client responded somewhat well to session, reporting she felt overwhelmed by stimulus. Client participated in the activity, but client was disqualifying her positives. The group helped client challenge her distorted thoughts in the moment. Client declined to provide an example of a current cognitive distortion she is experiencing but listened as peers processed their examples. Client helped the group identify ways to combat negative thoughts such as reframing to positives, communicating with supports, and using positive self-talk. Client appeared to benefit from gaining awareness of the distortions and using in the moment coping skills to combat negative thoughts of self. Client seems to be progressing as evidenced by her increased awareness, but client continues to struggle with disqualifying the positives, self-comparing, and coping with stressors out of her control which may hinder progress.
--- NOTE | 2017-11-16 09:05 | BH.SGPN.GN ---
Behaviors/Verbalizations/Mental Status: []Client alert and oriented, neatly dressed and groomed. Eye contact good. Motor activity restless. Speech within normal limits. Affect congruent, mood anxious, euthymic. Thoughts linear, logical, no signs of hallucinations or delusions. Reviewed clients symptom tracker, no risk for suicidal ideation, plan, or intent as of 11/16/17. Client Response/Progress/Benefit: []Client responded well to session, providing supportive statements to peers. Client shared yesterday was a challenging day for her as client felt overstimulated and overwhelmed during group. Client stated looking back could have stepped out of group and taken a break to cope with her emotions in the moment. Client also shared negative thoughts of self that went through client's head yesterday, but the group helped client challenge them. Client reports feeling better today as client is happy to be surrounded by peers who support her. Client shared she continues to struggle with negative thinking the what ifs can send me into a panic. Client and group discussed strategies to combat negative thoughts and help client accomplish goals. Client appeared to benefit from challenging negative thoughts in the moment and connecting with peers. Client progressing as shown by her report of reduced crying spells, but continues to struggle with depression, grief, and negative thinking.
--- NOTE | 2017-11-16 10:30 | BH.SGPN.GN ---
Behaviors/Verbalizations/Mental Status: [] Pt eye contact good, casually dressed, motor activity appropriate, speech normal rate and tone, mood euthymic, congruent affect, thoughts linear and intact, no evidence of delusions or hallucinations. Client Response/Progress/Benefit: []Pt active and engaged, listened attentively to others and contributed thoughts to discussion. Pt reported change is difficult because it's hard to follow through at times especially when going through other difficulties in life. Pt identified fear of failure, negative thinking, dwelling on how she used to be before stroke, low energy, and hard time concentrating as things that can get in the way of her making progress. Pt reported she has been able to overcome many challenges especially after her stroke, but sometimes worries she won't make the progress she hopes to have. Pt opened up a little about the anger she has towards doctors after her stroke. Pt seemed to benefit from expressing her thoughts and feelings as well as increased awareness into what can hold her back. Narrative Note: []
--- NOTE | 2017-11-16 16:05 | BH.MDN ---
Multi-Disciplinary Note - Note 60-min Individual Time Started:: 11:24 Date: 11/16/17 Purpose of session/treatment goals addressed:: The purpose of this session was to address client's current symptoms, stressors, conflicting emotions, and cognitive distortions. Another goal was to practice emotional release and process anger. Other topics included affirmations and identifying activities of interest to promote behavioral activation. Eye Contact:: Good Motor Activity:: Restless - tremor Appearance:: Neat Speech:: Appropriate Mood:: Dysthymic Affect:: Congruent - tearful throughout session Thoughts:: Linear, Logical, No evidence of hallucinations/delusions noted Staff Interventions:: Therapist used active listening and emotional validation to normalize client's symptoms and cognitive dissonance. Therapist used open-ended questions to explore client's current stressors, symptoms, barriers, and negative thinking patterns. Therapist used an activity to help client process her anger towards her medical condition and practice emotional release. Therapist used gentle challenging to help client recognize her distorted thoughts of self and how they impact client's mood. Therapist gave client a list of activities to choose from to help identify goals and a plan to increase behavioral activation. Therapist gave client homework to increase affirmations, identify things client deserves credit for, and start challenging negative thoughts. Therapist used strengths-perspective to acknowledge client's resilience. Client Response:: Client responded well to session, tearful throughout while processing anger and conflicting emotions. Client shared she recognizes her mood has improved since starting IOP, but client continues to find herself staring at the wall and having negative thoughts. Client stated her negative thinking keeps her from being social and makes client feel stuck. Client shared I'm scared to be a people person again because I have to explain my tremors. Client's negative thoughts are associated with her stroke and view of self since the stroke. Some of client's thoughts include I can't be the mother or grandmother I want to be, I'm a burden and another thing Dash has to deal with, and I was doing everything right before why did this happen. Client and therapist discussed how negative thinking impacts behaviors and emotions. Client stated she wants to work on challenging negative thoughts of self but reported all of my thoughts seem legit to me. With therapist elicitation, client gained insight that her anger towards the stroke and loss of functioning is also keeping client stuck. Client reported she has never really processed her anger I just stuff it down because I feel guilty about being angry. Client was receptive to engaging in an emotional release activity to process anger. Client shared the activity was somewhat helpful, but she continues to struggle with acceptance and finds herself grieving what she used to be able to do. Client able to identify positives about herself since the stroke such as being more relatable, slowing down, and having a new perspective. Client stated affirmations have been helpful in reframing negative self-talk, so client was receptive to increasing affirmations to three in the morning and three things client deserves credit for at night. Client was open to identifying activities she would be interested in to fill her schedule and give her purpose. The plan for next session is to identify behavioral activation goals, barriers, and solutions. Risks/Concerns:: Client denies suicidal ideation, plan, and intent as of 11/16/17. Client shared her cristian, children, and are her biggest protective factors. Progress Toward Goals/Plan:: Client demonstrating mild progress towards treatment goals as client reports improved mood while at IOP and success with using affirmations, but continues to endorse a depressed mood, isolation, and negative thinking that prevents client for engaging in pleasurable activities. Client receptive to homework given and goals for the week to increase her affirmations and identify activities she would be willing to incorporate into her routine. Client to continue IOP to prevent decompensation and decrease depressive symptoms. Time Stopped:: 12:19
--- NOTE | 2017-11-25 11:27 | BH.SGPN.GN ---
Behaviors/Verbalizations/Mental Status: [Client alert and orient x3, maintained good eye contact throughout, casually dressed and appropriate hygiene, motor activity appropriate for Client baseline - muscle tremor. Her speech was normal rate and tone for CLient - some slurring due to tremor, mood euthymic,anxious, congruent affect, thoughts linear and logical, no evidence of delusions or hallucinations.] Client Response/Progress/Benefit: [Client receptive of the session and appeared to respond well to content discussed. She was able to work in small groups on identifying and setting individual smart goals. Client indicated that her goal for this weekend would be to say 4-5 positive statements about my upcoming surgery. Client indicates that she believes that this will improve her outlook regarding the procedure as well as decrease anxieties and doubt related to such. Client did well to identify potential obstacles such as fear of pain, not wanting to be addicted to painkillers, feeling as though she is a burden, and fears regarding having to shave my head. Client displayed progress in her ability to identify potential solutions for overcoming each of these barriers. She indicated she could reach out to her supports, make a list of questions to ask her doctor and/or surgeon regarding fears related to the procedure and reminding herself of times in which she is made it through previous difficult situations. Client recommended continued IOP treatment in order to maintain gains made as well as continue to improve consistent implementation of skills learned for managing symptoms of anxiety and depression.] Narrative Note: []
--- NOTE | 2017-11-29 09:04 | BH.SGPN.GN ---
Behaviors/Verbalizations/Mental Status: [Client alert and oriented, neatly dressed and groomed. Eye contact good. Motor activity restless, appearance of tremors associated with stroke hx. Speech normal rate and tone for baseline, slurring associated with stroke hx. Affect congruent, mood anxious. Thoughts linear, logical, no signs of hallucinations or delusions. Reviewed client?s symptom tracker, no risk for suicidal ideation, plan, or intent as of 11/29/17.] Client Response/Progress/Benefit: [Client receptive of session, engaged throughout, and provided supportive feedback to peers which appeared to aid in easing client anxieties. Indicated that her emotion for the day is anxious but hopeful as she discussed having an upcoming neurology appointment later this week and fears what they will tell her. Client went on to discuss fear she will not be a good candidate and fear of having to ?shave my head for the surgery? should she be appropriate for the procedure. Client from the supportive feedback as well as suggestions of local resources regarding professional grade wigs to ease client anxieties about shaving her head. Progress noted in increased receptivity of group feedback and ability to begin challenging thoughts causing rumination. Client to continue IOP to continue to promote use of thought challenging and healthy coping behaviors, as well as to maintain stability.] Narrative Note: []
--- NOTE | 2018-01-17 13:52 | BH.PSA_ITS ---
Source of Information - Presenting Problems/Circumstances Problems, Referral Source, Mental Status, Client: Client is a 52-year-old female who was referred by her outpatient psychiatrist at [facility] due to worsening depression and anxiety symptoms. Client had a stroke in 2016 while getting ready for a 50km long distance race. Client stated the stroke ?completely flipped my world upside-down.? Client denies psychiatric symptoms prior to the stoke. Client?s mental, cognitive, and physical functioning have a ll been impacting since the stroke. Client currently endorses a depressed mood with anhedonia, loss of appetite, decreased energy, and isolation. Client shared ?I just sit at home and stare at the [place].? 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 Client reported ?I feel like a burden to my family.? Client endorses ruminative anxiety about her appearance, functioning, and inability to be the caregiver she wants to be. Client was cooperative during assessment, alert and oriented. Client has a tremor from the stroke causing restlessness. Client?s speech was slurred due to stroke and reports short-term memory issues. Psychiatric Presentation - Psych Issues & Need for Admission Psychiatric Issues:: Major depressive disorder single episode moderate F 33.1; Anxiety unspecified. Isolation, rumination, depressed mood, and anhedonia. Past Psychiatric History - Treatment Hx Treatment History: client currently sees Tatiana Hutson at [email or web address] and Ashley at [facility]. Client has been seeing Ashley for about a year. Client has had previous medication trials but is unable to remember details. First hospitalization:: denies hospitalizations Most recent hospitalization:: denies hospitalizations Medication Trials:: Yes - Zoloft, Klonopin, Ativan ECT Therapy:: No Age of first mental health symptoms: Client denies mental health symptoms prior to her stroke. Client reported I was never depressed or anything before this. Client shared her mental health symptoms started almost two years ago after the CVA. Describe (age, circumstance, etc) any past hospitalizations: client denies history of suicide attempts and psychiatric hospitalizations. Current providers for mental health treatment (counselor, psychiatrist, pillowcase maker, etc.): Client currently seeing Ashley at [facility]. Client is also seeing Tatiana Hutson at [facility] for psychiatric services. Development & Family of Origin - Childhood Significant Childhood Events: Client described her childhood as wonderful. Client was born and raised mostly in [place], but she did move around as a teenager and lived in [place] and [place] for some time in the 1980s due to her father's job. - Family Who currently lives in your home?: Client currently lives in [place] with her , Dash, and their dog Pound. Client identified their dog as one of her primary supports. Describe family composition:: Client described her family as close. Client has two older brothers, four children ranging from 22 years old to 32 years old, and nine grandchildren. Client reported she loves her children and grandchildren, b ut she often feels like a burden to them stating, I'm not the mother and grandmother they deserve due to client's limitations post stroke. Client has been twice. The first marriage lasted 25 years and her four children are from that marriage. Client is currently to Dash, and the two have been now for five years. Client described the relationship as ekaterina sharing the two met through their mutual love of running. - Family History Family Hx of Psychiatric or AOD Problems: Client denies family history of AOD and psychiatric problems. Ethnicity - Culture Do you identify yourself with any particular cultural, ethnic background, or community?: No - Sexuality Sexual Orientation: Heterosexual Spirituality - Episcopal Do you currently identify with any organized worship?: [employer] - Client and her attend [facility]. 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 Mental Status - Memory Recent Memory: Poor Remote Memory: Fair - Concentration Concentration: Fair - Eye Contact Eye Contact: Scans - Speech Speech: Soft - slurred due to stroke - Thought Process Thought Process: Ruminations Insight: Fair Judgment: Fair Behavior: Anxious - Client restless throughout due to a tremor from her stroke. - Orientation Orientation: Time, Person, Place, Situation - Appearance Appearance: Neat/clean - Mood Mood: Anxious, Depressed - Affect Affect: Constricted - Additional Information Significant Findings/Observations Checked Above:: CVA affected right side causing weakness, speech deficit, short-term memory difficulty, visual problems. Client has residual right-sided tremors and double vision. Suicide Assessment - Suicidal Ideation Have you ever felt like hurting yourself?: No Were you using ETOH/drugs at the time?: No Suicidal Intentional Rating Scale (SIRS): No suicidal thoughts (past or present) - Client denies suicidal thoughts, but reports passive thoughts of sharing, if I don't wake up tomorrow that would be okay. Client reports her worship and her family prevent her from even thinking about suicide. Physician Notification: If Active suicidal thoughts/Will not contract for safety is checked, contact physician and document in the Physician Notification section below. Violent Behavior/Abuse History - Homicidal Ideation Do you have any homicidal thoughts? If so, explain:: No Is there a known potential victim? If yes, who:: No - Abuse Have you ever been abused?: No - Life Events Are there any other significant life events?: Hardships - Client had a stroke in 2016 while training for a long distance race. She has grief associated with physical limitations and loss of activities including running and work. Client shared feeling like a burden as she has to rely more on others whereas before client was used to taking care of everyone. - Safety Do you ever feel threatened in your home? If yes, describe:: No Adult Social History - Age 18 to Present Describe your current support system:: Client identified her , dog, and family as primary supports. Client shared her shinto used to be a bigger support system for client, but client has not got back to being as engaged as she used to be. Client stated her depression, grief from loss of independence and functioning post CVA, and fear of what others think of her speech and tremor keep client from engaging with her once strong supports. Substance Use - Substance Substance Use Type: Alcohol - one half glass of wine every 2 weeks., Caffeine - Consumes 2 cups of coffee and 2 sodas daily - Specific Drugs What specific drugs have you used?: alcohol and caffeine - Extent of Use What quantity of substances have you used?: Client consumes two-four caffeinated beverages a day and drinks half a glass of wine approximately twice a month. Client denies binge drinking or use of illicit drugs. Client reports she is trying to wean-off of all medications as client fears addiction and states not liking how she feels on medication. - Duration of Use How long have you used substances?: client unable to answer due to difficulty remembering. Client shared her caffeine intake has increased since the stroke due to feeling increased fatigue throughout the day. - Last Usage What is the date and situation you last used?: drank coffee this morning and consumed wine two weeks ago. - IV Substance Use Do you have a history of IV use?: none reported Leisure/Social Activities - Interests What do you enjoy or might be interested in learning about?: Client enjoys outdoor activities and rides a recumbent bike. Client shared she loves being with her dog and grandchildren. Client reports enjoying volunteer work. Client also reports some interest in starting up her workout/bible study group at [employer] called [employer]. Client shared she is not yet ready to take this on, but she is more open to the idea now. Education & Occupational Histo - Education What is your level of education?: Some College - Client attended [employer] in [place], where she was studying psychology. Client reported she did not graduate having left before her cole year started. 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 Client stated she is currently looking for a measurement department chief clerk job to keep busy and help pay the bills. 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 Service - Service Have you ever been in the ?: No Legal History - Records Have you had any past legal charges?: No Do you have any current legal charges?: No Have you ever been incarcerated? If yes, describe:: No - Court Orders Have you had any past court orders for psychiatric treatment?: No Do you have a present court order for psychiatric treatment?: No Problem Checklist - Current Problem Areas Problem List: Nutritional/Eating pattern changes - decreased appetite, Depressed mood/sad - endorses depressed mood with anhedonia and decreased energy. Client shared she often feels like a burden to her family., Bereavement - Grief associated with physical limitations and loss of activities including running and work. 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 Client endorses rumination associated with what others think of her speech and tremors. Client shared people think I'm drunk., Inattention - Reports difficulty concentrating which she feels is residual effect of the CVA., Pertinent health issues - Client reports she was training for a 50 km long distance running race in [place] when she had sudden onset of stroke requiring 10 day medical hospitalization and rehab stay for 2 weeks and [place] prior to returning to [place]. CVA affected right side causing weakness, speech deficit, short-term memory difficulty, visual problems. She has residual right-sided tremors and double vision., Additional psychosocial stressors - loss of functioning, loss of independence, some financial stressors. Discharge Planning Needs - Anticipated Follow-Up Mental Health Center (Name/Phone Number):: [facility] Private Therapist/Psychiatrist:: Ashley Primary Care Physician: Chris Bishop Family and Caregiver Contacts:: Dash Garcia Release of Information Signed:: Yes - [phone] Community Agency Contacts: n/a Hand Bender Name/Phone Number: n/a Occupational Hygienist's Assessment - Client's Needs What are the client's feelings about the program?: Client reported feeling unsure about this whole thing as client stated belief she does not know if she fits in at [facility]. Client reported I thought everyone here was going to be a stroke survivor. Client shared she is willing to give the experience a shot. What are the client's goals?: Client identified her goals for treatment to be finding new activities she can do, contributing more at home, reducing depression, and increasing self-compassion. What are the client's strengths?: Client is kind, intelligent, and determined to improve her mental health. Client demonstrates resilience and determination as client has regained some physical abilities back after her stroke through her hard work in both physical and speech therapy. Client continues to be active and spend time outdoors despite not being able to participate in the high intensity exercises she used to do. Client identifies her , dog, family, and frie nds as positive supports. Client reports being a motivated person and wants to find new ways to bring more purpose to her life. Diagnoses - Diagnoses Diagnosis #1:: Major depressive disorder single episode moderate F 33.1 Diagnosis #2:: Anxiety unspecified Interpretive Summary - Interpretive Summary Interpretive Summary: Client is a 52-year-old female who was referred by her outpatient psychiatrist at [facility] due to worsening depression and anxiety symptoms. Client had a stroke in 2016 while getting ready for a 50km long distance race. Client stated the stroke ?completely flipped my world upside-down.? Client shared before the stroke her life was ?perfect? and client shared she does not understand why this happened to her. Client denies psychiatric symptoms prior to the stoke and denies family history of mental health or AOD problems. Client?s mental, cognitive, and physical functioning have all been impacting since the stroke. CVA affected right side causing weakness, speech deficit, short-term memory difficulty, visual problems. Client has residual right-sided tremors and double vision Client currently endorses a depressed mood with anhedonia, loss of appetite, difficulty concentrating, decreased energy, and isolation. Client shared ?I just sit at home and stare at the [place].? 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 Client reported ?I feel like a burden to my family.? Client reports passive thoughts of such as ?if I didn?t wake up it would be okay.? Client denies suicidal ideation, plan, and intent. Client reports her family and worship are protective factors. Client denies use of illicit drugs or issues alcohol or prescription medications. Client reports anger and difficulty accep ting her situation. Client endorses ruminative anxiety about her appearance, functioning, and inability to be the caregiver she wants to be. Client denies history of trauma or abuse. Client denies symptoms of naomie and obsessions and compulsions. Client denies history of disordered eating. Client attends a stroke support group and seeks individual counseling through [facility]. Treatment Plan Recommendations - Recommendations Guidelines: Special needs identified to be included in the development of an individualized treatment plan regarding past psychiatric history and treatment, developmental events, family relationships/events/culture, past and/or current educational, occupational, social, and residential experience, and legal status. Recommendations:: Admit to IOP as the structured setting is necessary to prevent decompensation and increase socialization. Medication risks and benefits discussed with IOP psychiatrist. Client encouraged caffeine reduction/abstinence by IOP psychiatrist. IOP psychiatrist also encouraged client to establish with neurologist.
== END 2017-11-22 23:59 ==
LOC: BHIOP 09:00
PROVIDERS: Family Provider Family Medicine; PCP Family Medicine; Visit Provider Psychiatry & Neurology Psychiatry
DX: F33.1 Major depressive disorder, recurrent, moderate (principal); F41.9 Anxiety disorder, unspecified; Z79.899 Other long term (current) drug therapy
CPT/HCPCS: H0035; 90832; 90837; 90853

== ENCOUNTER 2017-11-23 09:00 | Outpatient (RCR) | payer OTHER, SELFPAY ==
--- NOTE | 2017-11-23 09:05 | BH.SGPN.GN ---
Behaviors/Verbalizations/Mental Status: []Client alert and oriented, neatly dressed and groomed. Eye contact good. Motor activity restless, checking watch and tremor. Speech within normal limits. Affect constricted, mood dysthymic, anxious. Thoughts linear, logical, no signs of hallucinations or delusions. Reviewed clients symptom tracker, no risk for suicidal ideation, plan, or intent as of 11/23/17. Client Response/Progress/Benefit: []Client responded somewhat well to session, initially engaged, but then became withdrawn. Client's mood seemed to shift after a group member made a comment on some people taking too much time to share, as evidenced by client's affect shift and comments on time. Client reports feeling nervous today after a busy weekend and stressors last week. Therapist attempted to elicit additional information from client, but client declined to shared. Client stated she would expand more during individual session. Client appeared to benefit from receiving supportive statements on peers and making it to group despite feeling nervous. Client to continue IOP as she continues to struggle with isolation, negative thinking, and coping with stressors out of her control.
--- NOTE | 2017-11-23 10:18 | BH.SGPN.GN ---
Behaviors/Verbalizations/Mental Status: [Client maintained consistent eye contact, casually dressed, motor activity appropriate to baseline - tremor, speech baseline rate and tone - some slurring consistent with baseline, mood euthymic and anxious, congruent affect, thoughts linear and logical, no evidence of delusions or hallucinations.] Client Response/Progress/Benefit: [Responded well to session, willing to engage throughout. She was mostly a passive participant however remained actively listening during the discussion covering potential mental health pitfalls and how our decision to manage them impacts mental health and emotional well-being. Client appeared to benefit from engaging in the activity portion as evidenced by increased input provided and client taking on a leadership role as well as providing encouragement to follow participants. She did well to connect with the various associations made fellow participants discussing difficulties encountered in the activity such as lack of awareness of pitfalls and potential difficulties in managing pitfalls in life. Client is showing some increased progress in her ability to identify connections between her negative thinking and ongoing depressive symptoms. Recommended continued IOP in order to further ability to challenge and replace these negative thinking patterns and distorted thoughts as well as to maintain stability.] Narrative Note: []
--- NOTE | 2017-11-23 14:34 | BH.MDN ---
Multi-Disciplinary Note - Note 60-min Individual Time Started:: 11:27 Date: 11/23/17 Purpose of session/treatment goals addressed:: The purpose of this session was to address client's current stressors, symptoms, and anxiety triggers. Another goal was to use a decisional balance technique to reduce anxiety and process ambivalence. Other topics included radical acceptance and maintenance cycles. Eye Contact:: Good Motor Activity:: Restless Appearance:: Neat Speech:: Other - circumstantial Mood:: Anxious, Dysthymic Affect:: Constricted, Other - tearful Thoughts:: Other - circular, No evidence of hallucinations/delusions noted Staff Interventions:: Therapist used open-ended questions and active listening to explore client's current stressors, symptoms, and anxious thoughts. Therapist used a decisional balance technique to help client gain awareness the benefits and costs of her options and encourage change talk. Therapist gently challenged client on distorted thoughts to increase client's awareness of negative thinking patterns. Therapist encouraged client to challenge negative thoughts to break from negative maintenance cycles. Therapist used radical acceptance to help client cope with stressors out of her control. Therapist provided emotional support and validation when client expressed her concerns and worries. Therapist gave client a list of TedTalks about overcoming adveristy and gaining purpose after loss of independence. Client Response:: Client responded somewhat well to session, discrediting strategies for challenging cognitive distortions at times. Client reports she is currently anxious about making a decision on either getting brain surgery or getting botox treatments to treat her tremor. Client shared she knows the surgery will be more beneficial long-term, but client is struggling with ambivalence and is anxious. Client receptive to completing a decisional balance chart and identified pros and cons for both choices. Client processed her emotions and the chart with therapist. Client stated she will do the surgery, but is fearful of losing her hair, getting addicted to medication, and being a burden. Client and therapist processed her fears, challenged cognitive distortions, and identified possible solutions to help reduce anxiety. Client shared stopping her tremor is most important to her and it outweighs the risks. Client receptive to radical acceptance, sharing she wants to get better at changing her attitude towards stressors out of her control. Client recognizes she has uncousiously stayed miserable at times during her recovery from the stroke. Client reported she has been more social recently which demonstrates progress. Client shared I was kind of forced to be social, but we had fun. Client told therapist of negative thinking patterns that happened while client was with friends, and therapist and client challenged them together. Risks/Concerns:: Client denies suicidal ideation, plan, and intent as of 11/23/17. Client reports feeling tired of fighting her physical limitations but shared there's no other option but to keep going. Client identified her family and cristian as reasons to live. Progress Toward Goals/Plan:: Client progressing towards treatment goals as shown by her report of increased socialization and report of engaging in activities that bring purpose and aakash. However, client continues to struggle with challenging cognitive distortions, negative thoughts of self, ruminations, and continues to have some avoidance behaviors. Client to continue IOP to prevent decompensation and increase mood stability. Client to discuss family session with . Time Stopped:: 12:19
--- NOTE | 2017-11-25 09:05 | BH.SGPN.GN ---
Behaviors/Verbalizations/Mental Status: []Client alert and oriented, neatly dressed and groomed. Eye contact good. Motor activity restless, tremor. Speech within normal limits. Affect constricted, mood anxious. Thoughts linear, logical, no signs of hallucinations or delusions. Reviewed clients symptom tracker, no risk for suicidal ideation, plan, or intent as of 11/25/17. Client Response/Progress/Benefit: []Client responded well to session, engaged in discussion. 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 Client shared having mixed feelings about it because I know it will help, but its brain surgery! Client was receptive to emotional supportive given by group. Client identified her positives as riding her bike yesterday and having a good therapy session with her outpatient counselor. Client appeared to benefit from receiving supportive statements from peers and processing her conflicting emotions. Client to continue IOP to prevent decompensation and increase mood stability.
--- NOTE | 2017-11-25 14:02 | PN_ITS ---
Progress Note Patient is seen in follow-up for major depressive disorder F 33.1, anxiety unspecified, rule out PTSD. History is been obtained per interview with patient , discussion with staff, review of chart. Case discussed with treatment team. Chief complaint a lot has happened. More anxiety than depression. Interim history Mild depressive symptoms persist but of decreased intensity over the past 3 weeks. Complained of continued ruminative anxiety particularly regarding medical issues. Ongoing anxiety regarding residual deficits from stroke including inability to write, ongoing tremor, short-term memory loss and double vision. Attempted to discontinue the Klonopin but was unable to sleep due to increased tremor. Discontinued Klonopin one night and resumed it. Sleep has returned to normal. Generally sleeping from 10 PM to 8 AM. Able to discontinue Ativan. No suicidal or homicidal ideation. No symptoms consistent with psychosis. Hopeful as she has an appointment to see a movement specialist. Considering brain stimulator. Appetite normal. Denies nausea vomiting or diarrhea. Denies ingestion of alcohol or use of illicit drugs. Compliant with medication including Zoloft 100 mg daily. Klonopin 0.5 mg nightly. Mental status exam Alert and oriented . No acute distress. Ambulatory with normal gait and station. Appears stated age. Casually dressed and groomed. Appropriate hygiene. Cooperative with interview. Good eye contact. No psychomotor agitation or retardation. Mood depressed improved. Affect congruent. Speech is clear and with regular rate and rhythm. Language fluent. Thought process organized. Associations logical. Thought content significant for ruminative anxiety and themes of depression. No suicidal or homicidal ideation related or detected.. No symptoms consistent with psychosis noted or detected. Immediate recent and remote memory grossly intact. Attention and concentration are fair. Estimated intelligence and fund of knowledge average. Judgment and insight improving. Diagnosis Major depressive disorder single episode moderate F 33.1 Anxiety unspecified Rule out PTSD Continue IOP. Structured setting is necessary to prevent decompensation. Patient will likely benefit from ongoing IOP treatment. Risks benefits alternatives of medications discussed with patient. Patient acknowledges understanding. Continue Zoloft 100 mg daily. Continue Klonopin 0.5 mg nightly. Encourage follow-up with outpatient psychiatric providers and with neurology. 18 minutes of DBT oriented psychotherapy provided. Patient acknowledges understanding and is in agreement with plan. Feels able to maintain safety. Agrees to seek help or emergency care if feeling unsafe to self or others.
--- NOTE | 2017-11-29 10:23 | BH.SGPN.GN ---
Behaviors/Verbalizations/Mental Status: []Client alert and oriented, neatly dressed and groomed. Eye contact good. Motor activity restless. Speech within normal limits. Affect full, mood euthymic-providing optimistic points of view. Thoughts linear, logical, no signs of hallucinations or delusions. Client Response/Progress/Benefit: []Client responded well to session, contributing positively to discussion. Client connected with the quote sharing I used to think change is negative, but it isnt. Client shared that expectations, anxiety, and depression can keep people stuck from obtaining mental wellness. Client stated change is needed in order to improve mental health. Client identified personal changes she would like to make this week to improve her mental health such as writing down questions for her doctors appointment, meet with a friend once this week, and pack for her trip. Client shared this would increase her supports and reduce anxiety. Client identified her barriers to be anxiety and rumination. Client appeared to benefit from identifying goals for the week and gaining awareness of her barriers. Client to continue IOP to promote gains and increase generalization of healthy coping skills.
--- NOTE | 2017-11-29 11:25 | BH.SGPN.GN ---
Behaviors/Verbalizations/Mental Status: []Client alert and oriented, neatly dressed and groomed. Eye contact good. Motor activity restless-tremor. Speech within normal limits. Affect full, mood euthymic. Thoughts linear, logical, no signs of hallucinations or delusions. Client Response/Progress/Benefit: []Client responded well to session, contributing positively and providing supportive statements to peers. Client identified asking for help at her surgeon appointment as a change client is ready and willing to make this week. Client shared her personal barriers are anxiety, negative thinking, and fear. Client helped the group identify solutions to overcome barriers such as using mindfulness before the appointment, writing out the questions, and replacing negative thoughts with positive self-talk. Client appeared to benefit from identifying solutions to her barriers. Client seems to be progressing as evidenced by her report of improved mood and outlook on life. Client to continue IOP to reinforce healthy coping skills and promote mood stability.
--- NOTE | 2017-11-30 09:05 | BH.SGPN.GN ---
Behaviors/Verbalizations/Mental Status: []Pt alert and oriented. Casually dressed and appropriately groomed. Mood euthymic, affect congruent. Speech tone and rate WNL. Thoughts linear and logical. Motor activity appropriate. No evidence of delusions or hallucinations. Reviewed clients symptom tracker, no risk for suicidal ideation, plan, or intent as of 11/30/17. Client Response/Progress/Benefit: []Pt reported she was feeling anxious last night because ruminating about the upcoming neurology appointment tomorrow. Pt shared she is nervous about being told she isn't a good candidate for the surgery, but was able to challenge her thoughts to stay in the moment. Pt reported she was initially anxious and angry when found out about needing to have invasive brain surgery in order to hopefully stop the tremors from the stroke. Pt reported she is trying to remain positive and optimistic about potential surgery. Pt shared Tuesday is her last day in the program, which she is bittersweet because she will miss the connections with all the group members. Pt demonstrating progress AEB pt reporting decreased depression and anxiety as well as using skills more consistently. Narrative Note: []
--- NOTE | 2017-11-30 10:21 | BH.SGPN.GN ---
Behaviors/Verbalizations/Mental Status: [Client alert and orient x3. She maintained good eye contact, was casually dressed, motor activity restless - client often fidgeting in chair - tremor associated with client baseline, speech normal rate and tone - some slurring due to tremor, mood euthymic and anxious, affect congruent, thoughts linear and logical, no evidence of delusions or hallucinations.] Client Response/Progress/Benefit: [Client an active participant throughout and did well to remain engaged in both discussion and activity portions. She appeared to connect well with the discussion regarding potential crisis situation and indicated relating to various other participants experiences. Client worked with fellow participants on discussing how crisis may look for them and what may cause a crisis situation. Client identified that for her small things can often build up to the point of crisis. She discussed that often times she puts on a front in which it looks as though she is doing well on the surface underneath everything is festering and resultant in client exploding when no one is around. Client benefited from connecting with fellow participants experiences regarding crisis triggers. She is displaying progress in her ability to take away from the shared group experience apply strategies and feedback provided by fellow participants to her own life. Client is recommended continued IOP treatment in order to continue to make gains towards treatment goals as well as to continue to maintain stability.] Narrative Note: []
--- NOTE | 2017-11-30 15:34 | BH.MDN ---
Multi-Disciplinary Note - Note 30-min Individual Time Started:: 11:41 Date: 11/30/17 Purpose of session/treatment goals addressed:: The purpose of this session was to address client's progress, use of coping skills, and discuss discharge. Another goal was to promote maintenance of coping skills learned in IOP. Eye Contact:: Good Motor Activity:: Restless - tremor Appearance:: Neat Speech:: Appropriate Mood:: Euthymic Affect:: Full Thoughts:: Linear, Logical, No evidence of hallucinations/delusions noted Staff Interventions:: Therapist used active-listening and open-ended questions to explore client's perspective on IOP progress, helpful coping skills, and ways to promote maintenance. Therapist praised client for her progress with increasing socialization, acceptance, and self-esteem. Therapist discussed discharge and gathered information on client's aftercare appointments with mental health providers. Therapist and client reviewed client's strategies for success to promote maintenance and give client a visual reminder of healthy coping skills. Therapist gave client a calendar to help client create a schedule for self-care, pleasurable activities, and tasks. Client Response:: Client responded well to session, open to meeting with therapist. Client commented on her improved mood and outlook sharing, I used to think this place wasn't for me... I see now that I can gain things from people who don't have the same exact problem I do. Client reported watching the videos given by therapist on overcoming adversity and client stated the videos helped change client's attitude toward her stroke and quality of life. Client shared feeling more optimistic about getting back to doing things she used to love. Client reported she has returned to praying while exercising which is something client has not done since the stroke. 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 Client reported reduced isolation as evidenced by her report of spending time with friends, people from [employer], and family more often. Client stated, yesterday my told me we were going out and I almost let myself get panicked, but then I just breathed, and it was fun. Client and therapist reflected on client's progress from day one to now. Client shared gaining support from the group, challenging her negative thinking, and looking for positives have contributed to client's improved mood. Client identified her strategies for success to be: be kind to self, set a weekly schedule, exercise and pray, be social, look at positives, and using supports. Client has an appointment with her new neurologist tomorrow to discuss potential brain surgery to fix her tremor. Client continues to endorse some anxiety about the surgery, but reports her symptoms are managed as client has written questions for the surgeon and has been using positive self-talk. Risks/Concerns:: No risk or concerns to document. Client denies suicidal ideation, plan, and intent. Client also reports improved outlook on life and no passive thoughts of which demonstrates progress. Progress Toward Goals/Plan:: Client has made progress towards her treatment goals as evidenced by her report of reduced depression, increased socialization, and improved management of anxiety. Client shared she feels ready to discharge from [facility] and reported improved outlook on life and acceptance of stressors out of her control. Client continues to endorse symptoms of anxiety and some negative thoughts patterns, but per client report, she has increased awareness and use of coping skills to reduce these symptoms. Client to discharge Tuesday12/02/17 and follow up with outpatient mental health providers for continuity of care. Time Stopped:: 12:15
--- NOTE | 2017-12-01 08:11 | BH.MDN_ITS ---
Multi-Disciplinary Note - Note 30-min Individual Time Started:: 11:41 Date: 11/30/17 Purpose of session/treatment goals addressed:: The purpose of this session was to address client's progress, use of coping skills, and discuss discharge. Another goal was to promote maintenance of coping skills learned in IOP. Eye Contact:: Good Motor Activity:: Restless - tremor Appearance:: Neat Speech:: Appropriate Mood:: Euthymic Affect:: Full Thoughts:: Linear, Logical, No evidence of hallucinations/delusions noted Staff Interventions:: Therapist used active-listening and open-ended questions to explore client's perspective on IOP progress, helpful coping skills, and ways to promote maintenance. Therapist praised client for her progress with increasing socialization, acceptance, and self-esteem. Therapist discussed discharge and gathered information on client's aftercare appointments with mental health providers. Therapist and client reviewed client's strategies for success to promote maintenance and give client a visual reminder of healthy coping skills. Therapist gave client a calendar to help client create a schedule for self-care, pleasurable activities, and tasks. Client Response:: Client responded well to session, open to meeting with therapist. Client commented on her improved mood and outlook sharing, I used to think this place wasn't for me... I see now that I can gain things from people who don't have the same exact problem I do. Client reported watching the videos given by therapist on overcoming adversity and client stated the videos helped change client's attitude toward her stroke and quality of life. Client shared feeling more optimistic about getting back to doing things she used to love. Client reported she has returned to praying while exercising which is something client has not done since the stroke. 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 Client reported reduced isolation as evidenced by her report of spending time with friends, people from [employer], and family more often. Client stated, yesterday my told me we were going out and I almost let myself get panicked, but then I just breathed, and it was fun. Client and therapist reflected on client' s progress from day one to now. Client shared gaining support from the group, challenging her negative thinking, and looking for positives have contributed to client's improved mood. Client identified her strategies for success to be: be kind to self, set a weekly schedule, exercise and pray, be social, look at positives, and using supports. Client has an appointment with her new neurologist tomorrow to discuss potential brain surgery to fix her tremor. Client continues to endorse some anxiety about the surgery, but reports her symptoms are managed as client has written questions for the surgeon and has been using positive self-talk. Risks/Concerns:: No risk or concerns to document. Client denies suicidal ideation, plan, and intent. Client also reports improved outlook on life and no passive thoughts of which demonstrates progress. Progress Toward Goals/Plan:: Client has made progress towards her treatment goals as evidenced by her report of reduced depression, increased socialization , and improved management of anxiety. Client shared she feels ready to discharge from [facility] and reported improved outlook on life and acceptance of stressors out of her control. Client continues to endorse symptoms of anxiety and some negative thoughts patterns, but per client report, she has increased awareness and use of coping skills to reduce these symptoms. Client to discharge Tuesday12/02/17 and follow up with outpatient mental health providers for continuity of care. Time Stopped:: 12:15
--- NOTE | 2017-12-02 08:09 | BH.AFTERPLAN ---
Aftercare Plan - Demographics Treatment End Date:: 12/02/17 Psychiatrist:: Lois Mai Psychiatrist Office #:: [id number] [facility] Therapist:: Daisy Clinton Therapist Phone #:: [phone] - Medications Home Medications: Home Medications Enoxaparin Sodium [Lovenox] 40 mg SQ DAILY 05/03/16 Lorazepam [Ativan] 0.25 mg PO DAILY PRN 05/03/16 Omeprazole [Prilosec] 20 mg PO DAILY 05/03/16 Docusate Sodium [Colace] 100 mg PO BID PRN PRN #60 capsule 05/17/16 Clonazepam [Klonopin] 0.5 mg PO QHS 11/04/17 Sertraline HCl [Zoloft] 100 mg PO DAILY 11/04/17 - Plan Details Progress/Aftercare Plan Details:: You have made significant progress towards your treatment goals of reducing depression, increasing socialization, and improving your ability to manage anxiety. 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 You have inspired others in group to think positively and you have demonstrated great resilience! You have used pros and cons to look at what is most important to you, even if the options are scary! You seem to have an improved outlook on life and acceptance of stressors out of your control. You have increased your awareness of warning signs, negative thoughts, and what will help improve your mood. You have been able to control your anxiety and not let myself get panicked. You recognize that there will be hardships and struggles, but you are resilient, and you will make it through challenges! Strategies for Success:: 1. Stay active and busy with things you enjoy! 2. Be kind to yourself! You deserve to treat yourself as nicely as you treat others. 3. Use your supports-group, family, mormonism friends, health professionals. 4. Look at the POSITIVE possibilities and outcomes. 5. Weigh the pros and cons- see what's most important to you! 6. Exercise and pray! an object in motion stays in motion. 7. Recognize your strengths and acknowledge your progress! 8. Even when you don't feel great try to socialize! Spend time with your positive supports. 9. Challenge those negative thoughts! Ask yourself is this kind? True? Helpful? 10. Keep up the good work!!! - Appointments Appointments/Referrals to Other Services:: 1. Appointment with Ashley for mental health counseling on 12/30/17. 2. Follow up with Tatiana Hutson at [facility] for psychiatry.
--- NOTE | 2017-12-02 08:27 | BH.IGGP_ITS ---
Aftercare Plan - Demographics Treatment End Date:: 12/02/17 Psychiatrist:: Lois Mai Psychiatrist Office #:: [id number] [facility] Therapist:: Daisy Clinton Therapist Phone #:: [phone] - Medications Home Medications: Home Medications Enoxaparin Sodium [Lovenox] 40 mg SQ DAILY 05/03/16 Lorazepam [Ativan] 0.25 mg PO DAILY PRN 05/03/16 Omeprazole [Prilosec] 20 mg PO DAILY 05/03/16 Docusate Sodium [Colace] 100 mg PO BID PRN PRN #60 capsule 05/17/16 Clonazepam [Klonopin] 0.5 mg PO QHS 11/04/17 Sertraline HCl [Zoloft] 100 mg PO DAILY 11/04/17 - Plan Details Progress/Aftercare Plan Details:: You have made significant progress towards your treatment goals of reducing depression, increasing socialization, and improving your ability to manage anxiety. 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 You have inspired others in group to think positively and you have demonstrated great resilience! You have used pros and cons to look at what is most important to you, even if the options are scary! You seem to have an improved outlook on life and acceptance of stressors out of your control. You have increased your awareness of warning signs, negative thoughts, and what will help improve your mood. You have been able to control your anxiety and not ?let myself get panicked.? You recognize that there will be hardships and struggles, but you are resilient, and you will make it through challenges! Strategies for Success:: 1. Stay active and busy with things you enjoy! 2. Be kind to yourself! You deserve to treat yourself as nicely as you treat others. 3. Use your supports-group, family, muslim friends, health professionals. 4. Look at the POSITIVE possibilities and outcomes. 5. Weigh the pros and cons- see what's most important to you! 6. Exercise and pray! an object in motion stays in motion. 7. Recognize your strengths and acknowledge your progress! 8. Even when you don't feel great try to socialize! Spend time with your positive supports. 9. Challenge those negative thoughts! Ask yourself is this kind? True ? Helpful? 10. Keep up the good work!!! - Appointments Appointments/Referrals to Other Services:: 1. Appointment with Ashley for mental health counseling on 12/30/17. 2. Follow up with Tatiana Hutson at [facility] for psychiatry.
--- NOTE | 2017-12-02 09:42 | BH.DS ---
Discharge Summary - Demographics Date of Admission:: 11/01/17 Discharge Date: 12/02/17 Presenting Problems at Admission:: Client is a 52-year-old female who presented to the behavioral medicine [facility] with chief complaint of depression and anxiety. Client had a stroke in 2016 and client shared my whole world got turned upside down. Client at admission, reported grief associated with loss of independence and physical ability. Client endorsed a depressed mood, anhedonia, feelings of being a burden, loss of appetite, rumination, and negative thinking. Additionally, at admission, client reported isolation most days during which client would stare blankly at my [place]. Client shared she has been struggling with depression since the stroke and reported having a hard time accepting that the rest of my life Ill be like this. Client shared the effects of the stroke hinder her ability to complete ADLs which client stated further contributed to her depression, anxiety, and negative core beliefs. Discharge Diagnoses:: Major depressive disorder single episode moderate F 33.1; Anxiety unspecified; Rule out PTSD Reason for Discharge:: Client has made significant progress towards treatment goals as evidenced by her report of reduced intensity of mental health symptoms, increased socialization, and improved mood. Additionally, client's DSM-5 scores reflected slight depression and mild anxiety symptoms at discharge which demonstrates progress as client reported moderate symptoms at admission. For these reasons, client no longer meets criteria for [facility] level of care. - Treatment Progress During Treatment & Response: Client responded well to [facility] as evidenced by her report of improved mood, reduced mental health symptoms, and increased use of healthy coping skills. Client shared at first, she did not think I belonged here at all and almost did not follow through with the program. However, reflecting on her progress at discharge, client reported I'm glad I did this and now all these people have a special place in my heart. Client was an active participant in group and often provided supportive statements to peers. Client had good attendance, having only missed a few scheduled sessions due to illness or a medical appointment. Client reported progress with increased awareness of warning signs, triggers, and negative thought patterns. At discharge, client shared feeling more optimistic about getting back to doing things she used to love. 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 Client demonstrated progress with reducing isolation and anhedonia as evidenced by her report of spending time with friends, people from [employer], and family more often. Lastly, client reported improved acceptance of stressors out of her control, improved self-esteem, and a more positive outlook on the future which shows progress. Issues Still to be Addressed:: Client has demonstrated progress with learning to more effectively manage her mental health symptoms, but can continue to benefit from ongoing reinforcement of healthy coping skills to promote maintenance. Additionally, client plans to potentially have brain surgery which is triggering increased anxiety symptoms. Due to this, client could benefit from continued work on use of calming strategies, thought challenging, and use of positive affirmations. Client and therapist had discussed a plan and strategies to improve positive supports, maintain mood stability, and increase pleasurable activities post IOP discharge, but there is a concern that client may not follow through with this plan due to her upcoming vacation and possible surgery. Lastly, client can benefit from ongoing work on reframing negative core beliefs of self associated with her stroke. Discharge Recommendations/Instructions:: Client was recommended to follow up with her mental health outpatient providers for continuity of care post IOP discharge. Client reports plan to follow up with outpatient counselor, Ashley, on 12/30/17 at [facility]. Client is established at [facility] for psychiatric services and sees Tatiana Hutson. Client was unsure of her next appointment, but reports plan to follow up with Tatiana for ongoing psychiatric care. Discharge Handout: Complete Discharge Handout with client on aftercare options and continuity of care.
--- NOTE | 2017-12-02 10:23 | BH.SGPN.GN ---
Behaviors/Verbalizations/Mental Status: []Client alert and oriented, neatly dressed and groomed. Eye contact good. Motor activity restless. Speech within normal limits. Affect full, mood euthymic. Thoughts linear, logical, no signs of hallucinations or delusions. Client Response/Progress/Benefit: []Client responded well to session, active participant. Client connected with the quote sharing boundaries arent a bad thing, they help you feel better. Client reported barriers to setting healthy boundaries such catastrophizing, depression, and other people. Client identified potential benefits of boundaries such communicating values and needs, gaining positive support, and improved self-esteem. Client helped the group discuss the different types of boundaries, porous, rigid, and flexible as well as the pros and cons to each. Client shared she used to have rigid boundaries after her stroke which led to isolation and increased depression. Client now reports flexible boundaries which has helped client improve her relationships. Client appeared to benefit from learning how boundaries impact mental health and identifying her boundary type. Client to discharge from [facility] today as she has demonstrated significant progress towards treatment goals.
--- NOTE | 2017-12-02 11:21 | BH.SGPN.GN ---
Behaviors/Verbalizations/Mental Status: []Client alert and oriented, neatly dressed and groomed. Eye contact good. Motor activity restless. Speech within normal limits. Affect full, mood euthymic. Thoughts linear, logical, no signs of hallucinations or delusions. Client Response/Progress/Benefit: []Client responded well to session, active participant and pointing out progress in peers. Client created a visual representation of her boundaries. Client shared my [place] used to be [place] off after my stroke...Id make excuses all the time not be around people. Client reported when she avoided people she felt more depressed and hopeless. Client shared now she sees the benefits of being more flexible and letting more supports in her life. Client stated, I dont want to isolate anymore, I want to be out in nature. Client receptive to learning ways to set healthy boundaries such as reminding herself of the long-term benefits, managing emotions, and communicating needs. Client appeared to benefit from learning how to set healthy boundaries. Client to discharge from [facility].
== END 2017-12-02 14:00 | disposition home or self-care (01) ==
LOC: BHIOP 09:00
PROVIDERS: Family Provider Family Medicine; PCP Family Medicine; Visit Provider Psychiatry & Neurology Psychiatry
DX: F33.1 Major depressive disorder, recurrent, moderate (principal); F41.9 Anxiety disorder, unspecified; Z79.899 Other long term (current) drug therapy
CPT/HCPCS: H0035; 90832; 90837; 90853

== ENCOUNTER 2018-10-21 13:22 | Inpatient (IN) | payer MEDICARE, SELFPAY ==
[2018-10-21] VITALS (11 sets, daily range): BP systolic 106–138; BP diastolic 60–81; PULSE 52–82; RESP 16–20; TEMP 36.4–36.9; O2SAT 95–99; BMI 20.4; BMI 19.5
[2018-10-21 13:36] LABS: Bedside Glucose 104 mg/dL (70-110)
--- NOTE | 2018-10-21 13:39 | CT_ITS ---
STUDY: CT BRAIN WITHOUT CONTRAST REASON FOR EXAM: Female, 53 years old. STROKE S/S. RADIATION DOSAGE (If Supplied By Facility): CTDIvol = ( 44.99 ) mGy, DLP = ( 748.30 ) mGycm TECHNIQUE: Transaxial CT imaging of the brain was performed without administration of intravenous contrast material. Individualized dose optimization techniques were used for this CT. COMPARISON: May 07, 2016 FINDINGS: Normal size ventricles and extra-axial spaces for the patient's age. There are areas of decreased attenuation within the white matter tracts of the supratentorial brain, consistent with microvascular disease changes. Normal basal ganglia and thalami. Normal brainstem. Again noted is a left thalamic focal insult. Again noted is a small area of left cerebellar encephalomalacia and gliosis, consistent with prior insult. There is no intracranial hemorrhage. There are no findings of an acute ischemic infarction. Normal visualized paranasal sinuses. CT/Brain/Head without Contrast IMPRESSION: No acute intracranial abnormality. Chronic left thalamic and cerebellar infarctions. Electronically Signed: Zoila Romero MD at 14:02 EDT Tel , Service support ,
--- NOTE | 2018-10-21 13:39 | EKG12_ITS ---
Test Reason : NEURO Blood Pressure : / mmHG Vent. Rate : 054 BPM Atrial Rate : 054 BPM P-R Int : 120 ms QRS Dur : 074 ms QT Int : 410 ms P-R-T Axes : 049 080 065 degrees QTc Int : 388 ms Sinus bradycardia Possible Left atrial enlargement Borderline ECG Confirmed by SYLVIA WATSON, MEREDITH ([id number]), newspaper photo editor DANE NI ([id number]) on 10/24/2018 11:54:10 AM Referred By: Confirmed By:MEREDITH WARD MD
--- NOTE | 2018-10-21 13:40 | ED.DCSUM_ITS ---
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 She has reported weakness left side during that examination. He documented continuous tremor left lower extremity. She demonstrates chronic tremor right lower extremity. Current Severity: Mild Maximum Severity: Mild Worsened by: Nothing Relieved by: Nothing Associated Symptoms: Negative for: Headache, Nausea, Vomiting, Chest Pain Narrative: Patient is a middle-age woman who presents with leaning to the left. She has residual right-sided facial droop and residual left-sided weakness according to neurology note. He also noted find rotary nystagmus. All of patient's symptoms other than leaning to the left has been chronic since stroke. Prior similar symptoms: Yes Recent Illness/Hospitalization: No - Past Medical History (1) Hx of ischemic vertebrobasilar artery brainstem stroke Status: Acute Past Medical History - Allergies and Home Meds Allergies/Adverse Reactions: Allergies No Known Allergies Allergy (Verified 05/03/16 16:02) Primary Care Physician: Chris Bishop [Primary Care Provider] - Prior records reviewed: Yes - Patient's own records from Internet Lives: Spouse/ Significant Other Smoking Status: Never smoker Alcohol: None Drugs: None Review of Systems General: Denies: Chills, Fever, Sweats Eyes: Reports: Blurred Vision - bilaterally. Denies: Visual changes - bilaterally, Diplopia ENT: Denies: Rhinorrhea, Sore throat Cardiovascular: Denies: Chest pain, Palpitations Respiratory: Denies: Dyspnea, Cough, Dyspnea on exertion Gastrointestinal: Denies: Abdominal pain, Nausea, Vomiting, Diarrhea, Melena, Hematochezia Genitourinary: Denies: Dysuria, Hematuria, Frequency Musculoskeletal: Denies: Myalgias, Arthralgias, Neck pain, Back pain, Swelling, Extremity Pain Skin: Denies: Rash, Wounds Neurological: Reports: Weakness, Parasthesia, - - Right lower extremity tremor, chronic. Fine rotary nystagmus, which is chronic.. Denies: Headache Hematologic: Denies: Easy bruising, Easy bleeding [id number] Vital Signs/Narrative: Vital Signs Temp Pulse Resp BP Pulse Ox 10/21/18 13:26 97.6 F L 72 20 H 138/81 H 99 Inital Vital Signs reviewed: Yes - NIHSS Level of Consciousness: Alert Ask Patient Current Month & Age: Both correct Ask Patient fo Close Eyes & Make a Fist: Performs both tasks correctly. Lateral Gaze: Normal [id number] eye movement Visual Antony: Normal visual antony Facial Weakness: Mild one sided droop with Arm Weakness - Left: No drift Arm Weakness - Right: No drift Leg Weakness - Left: No drift Leg Weakness - Right: No drift Coordination: Normal or no movement Sensation (feeling): Normal Speech (content): Correct full sentences Speech (slurring): No slurring - Patient did have stuttering noted. Neglect: Sees & feels when both sides tested at once Total: 1 - Facial droop is chronic General: Well nourished, Well developed, Obese, Cachectic, Contractures, Unkempt, - Head: Normocephalic, Atraumatic, - Eyes: Perrl, EOMI, - - Conjunctive a is normal and there is no scleral icterus ENT: Moist mucous membranes, No rhinorrhea Neck: Supple, Nontender, No lymphadenopathy, No JVD, - Cardiovascular: Regular rate, Regular rhythm, No murmurs, Normal S1, Normal S2 Respiratory: No distress, CTA bilaterally - Right arm Abdomen: Soft, Nontender, Nondistended, Normal bowel sounds, No masses Rectal: Deferred Back: Nontender, Normal Inspection Extremities: Nontender, No edema Skin: Normal color, No rash Neurological: Alert, Oriented x3, Normal Strength, Normal Sensation, Normal DTR - Right upper arm obtained was negative for Psychological: Tearful Diagnostic/Tx/Re-eval Impressions Brain CT 10/21/18 13:39 IMPRESSION: No acute intracranial abnormality. Chronic left thalamic and cerebellar infarctions. Electronically Signed: Zoila Romero MD at 14:02 EDT Tel , Service support , 10/21/18 13:39 Brain/Head without Contrast [CT] Stat Laboratory Results 10/21/18 10/21/18 10/21/18 13:32 14:10 14:10 WBC 6.1 RBC 4.63 Hgb 14.5 Hct 42.5 MCV 91.8 MCH 31.3 MCHC 34.1 RDW 13.4 RDW Differential 44.5 H Plt Count 239 MPV 10.5 Immature Gran % (Auto) 0.200 Neut % (Auto) 62.6 Lymph % (Auto) 25.9 Moore % (Auto) 9.8 Eos % (Auto) 1.0 Baso % (Auto) 0.5 Absolute Neuts (auto) 3.8 Absolute Lymphs (auto) 1.58 Total Counted Not Reportable PT 13.0 INR 1.0 APTT 26.8 Sodium Potassium Chloride Carbon Dioxide Anion Gap BUN Creatinine Estim Creat Clear Calc Est GFR (MDRD) Af Amer Est GFR (MDRD) Non-Af BUN/Creatinine Ratio Glucose Calcium Troponin I POC Glucose 104 10/21/18 14:10 WBC RBC Hgb Hct MCV MCH MCHC RDW RDW Differential Plt Count MPV Immature Gran % (Auto) Neut % (Auto) Lymph % (Auto) Moore % (Auto) Eos % (Auto) Baso % (Auto) Absolute Neuts (auto) Absolute Lymphs (auto) Total Counted PT INR APTT Sodium 140 Potassium 4.4 Chloride 105 Carbon Dioxide 28.0 Anion Gap 7 BUN 12 Creatinine 0.66 Estim Creat Clear Calc 89.17 Est GFR (MDRD) Af Amer 120 Est GFR (MDRD) Non-Af 99 BUN/Creatinine Ratio 18.1 Glucose 93 Calcium 9.3 Troponin I < 0.015 POC Glucose - EKG Initial EKG Interpretation: Sinus Bradycardia - Ventricular rate is 54. GA interval is 120 ms. QRS duration 74 ms. QT interval 410 ms and QTc is 388 ms. Moneta is normal. The EKG is normal other than bradycardia. Brain alert phenomenal - Medical Decision Making Stroke Team Activated: No Was Patient considered for Endovascular Intervention?: No IV Alteplase (t-PA) Administered: No No contraindications for IV Alteplase (t-PA) administration.: Yes - No contraindication to thrombolytic therapy With prior history of midbrain stroke will initiate stroke work-up. Of note patient does not have weakness that was documented by her neurologist at [facility] Dr. Baptiste. The only other Kaylee noted was a chronic right facial droop. states the office note is incorrect regarding the tremor. Tremor should be on the right side not left as documented by her neurologist. He documented weakness left upper and left lower extremity. On my exam she has 5/5 strength. states he was told that her stuttering is secondary to her prior stroke. CAT scan reveals prior thalamic and cerebellar infarct. No acute ab normality noted. With a normal neurologic exam and no nausea vomiting or ocular symptoms plan is to discharge to home to follow-up with her neurologist since the symptoms have been chronic for months. When I went to discuss findings with patient and they informed me that she had trouble with her speech. I was unaware of this piece of information initially. She also reported nausea which she had prior to her stroke several years ago. Her speech at this time is more. Fluent than it was when she initially presented.. According to the and patient she had a clot noted during her work-up. However because of the timing she was not a thrombotic candidate nor was she a candidate for retrieval. Patient states she had a hypercoagulable work-up and no evidence of hypercoagulable state. She is presently on aspirin. She does have a baclofen pump. The baclofen pump is MRI compatible. has documentation to support this statement. ED Disposition - Plan for ED Patient: Disposition: Acute Care Hospital [facility] Diagnosis: Fluency disorder following cerebrovascular disease, Balance problem, History of stroke Referrals: Chris Bishop [Primary Care Provider] -
[2018-10-21 14:26] LABS: Absolute Lymphocyte Count 1.58 X10^3/ul (0.83-4.51); Absolute Neutrophil Count 3.8 X10^3/uL (2.0-7.7); Basophil# 0.03 X10^3/uL; Basophil% 0.5 % (0-1); Eosinophil# 0.06 X10^3/uL; Hematocrit 42.5 % (37-47); Hemoglobin 14.5 g/dl (12.0-15.0); Lymphocyte # 1.58 X10^3/ul (4.0); Lymphocyte % 25.9 % (19-41); Mean Corp Hgb Conc 34.1 g/gl (32-36); Mean Corpuscular Hgb 31.3 pg (27.0-32.0); Mean Corpuscular Volume 91.8 fL (81-99); Mean Platelet Vol. 10.5 fl (6.2-12.0); Monocyte% 9.8 % (0-10); Neutrophil # 3.83 X10^3/uL (2.7-7.7); Neutrophil % 62.6 % (47-70); POSITIVE COUNT NO; POSITIVE DIFFERENTIAL NO; POSITIVE MORPHOLOGY NO; Partial Thromboplast Time 26.8 Seconds (24.1-36.2); Platelet Count 239 K/mm3 (150-450); RBC Distribution Width CV 13.4 % (11.6-14.6); RBC Distribution Width SD 44.5 fl (35.1-43.9); Red Blood Count 4.63 M/mm3 (4.2-5.4); White Blood Count 6.1 K/mm3 (4.4-11.0)
[2018-10-21 14:35] LABS: Anion Gap 7 (5-15); BUN 12 mg/dL (7-18); BUN/Creat Ratio 18.1 RATIO (10-20); Calcium,Total 9.3 mg/dL (8.5-10.1); Chloride 105 mmol/L (98-107); Creatinine, Serum 0.66 mg/dL (0.55-1.02); EST Glomerular Filtration Rate 99 mL/min (>60); Est Glom Filt Rate - Afr Amer 120 mL/min (>60); Estimated Creatinine Clearance 89.17 ml/min; Glucose 93 mg/dL (74-106); Potassium 4.4 mmol/L (3.5-5.1); Sodium Level 140 mmol/L (136-145)
--- NOTE | 2018-10-21 16:57 | PCM.HP.STD ---
Problem List (1) Hx of ischemic vertebrobasilar artery brainstem stroke Status: Acute History of Present Illness Date of Admission: 10/21/18 Chief Complaint: Nausea and leaning to the left The patient is a 53 year old F who suffered I would appear to be cerebellar strokes approximately 3 years ago. Today, had feeling nausea and started leaning towards her left. This was consistent with symptoms that she had with her stroke 3 years ago. Only, patient was having slurred speech which seemed to be worse than her baseline and also had some expressive aphasia though no receptive aphasia. Was concerned and came into the emergency room. Patient underwent a work-up including CAT scan that showed cerebellar strokes but no other acute process. Patient does endorse that she has diplopia when she looks in certain ways but not went straight on but that is unchanged. She does have tremors involving her right lower extremity but that is chronic from her strokes. Prior to her strokes, patient was very active and was doing 50 km marathons. [] Past Medical History Medical History: Medical History (Last Updated 10/21/18 @ 17:00 by Arden Chaudhry DO) CVA (cerebral vascular accident) I63.9 Allergies No Known Allergies Allergy (Verified 05/03/16 16:02) Home Medications: Ambulatory Orders Medication Instructions Recorded Omeprazole [Prilosec] 20 mg PO DAILY 05/03/16 Clonazepam [Klonopin] 1 mg PO QHS 11/04/17 Sertraline HCl [Zoloft] 150 mg PO DAILY 11/04/17 Aspirin [Aspir 81] 81 mg PO DAILY 10/21/18 Baclofen Pump 146 mcg DAILY 10/21/18 Lives: Spouse/ Significant Other Smoking Status: Never smoker Alcohol: None Drugs: None - *Family History Maternal History Items: - - no CVA Review of Systems Constitutional: Denies: Anorexia, Chills, Fever, Night Sweats, Malaise, Weakness Eyes: Denies: Blurred vision, Double vision HEENT: Denies: Head Aches, Sinus Congestion, Sinus Drainage Cardiovascular: Denies: Chest Pain, Palpitations Respiratory: Denies: Cough, Shortness of breath at rest, Sputum production Gastrointestinal: Denies: Abdominal Pain, Nausea, Vomiting Genitourinary: Denies: Dysuria Musculoskeletal: Denies: Joint Pain, Joint Tenderness Skin: Denies: Rash, Wounds Neurological: Reports: Double vision, Slurred speech, Tremor. Denies: Blurred vision, Headaches, Incoordination, Numbness Psychiatric: Reports: Depression. Denies: Anxiety Endocrine: Denies: Change in Body Habitus, Heat/ Cold Intolerance Hematologic/ Lymphatic: Denies: Easy Bruising, Easy Bleeding, Hx of blood clot Comment: A 10 point review of systems were negative except as mentioned in the history of present illness and the other review of systems. VTE Information - Inpt Only VTE Present on Admission: No VTE Mechan Device Prophylaxis: None VTE Pharm Prophylaxis ordered?: Yes Patient Problems: Active and Suspected Problems (Last Updated 10/21/18 @ 17:00 by Arden Chaudhry DO) Fluency disorder following cerebrovascular disease (Acute) Balance problem (Acute) History of stroke (Acute) - Physical Exam General: Alert, Oriented x3, Cooperative, No apparent distress, Well developed, Well nourished HEENT: Atraumatic, PERRLA, EOMI, Normocephalic, - - Diminished vision in the right upper quadrant Oral: Moist Mucosa, No Gingival or Mucosal Lesions/ Ulcerations Neck: No Nodes, Thyroid Normal Size and Texture Lungs: Clear to auscultation, Normal air movement, No rhonchi, No wheeze Cardiovascular: Regular rate, Regular Rhythm, Normal S1, Normal S2, No murmurs Abdomen: Bowel Sounds Present, Soft, Non Tender, Non-Distended, No Hepato-splenomegaly Extremities: No edema, No Calf Tenderness Skin: No rashes, No breakdown Musculoskeletal: No Tenderness to Palpation of Joints or Extremities, No Muscle Wasting Neurological: Cranial nerves II-XII grossly intact, Motor Exam 5/5 strength throughout, Sensory exam intact to light touch and pain Psych/Mental Status: Normal Affect, Appropriate Vital Signs Temp Pulse Resp BP Pulse Ox 36.4 C L 59 L 16 108/76 98 10/21/18 13:26 10/21/18 15:45 10/21/18 15:45 10/21/18 15:45 10/21/18 15:45 Oxygen Delivery Method Room Air Weight: 57.3 kg Body Mass Index (BMI) 20.4 Finger Stick Blood Glucose 104 Laboratory Tests Past 24 Hrs 10/21/18 10/21/18 10/21/18 14:10 14:10 14:10 WBC 6.1 RBC 4.63 Hgb 14.5 Hct 42.5 MCV 91.8 MCH 31.3 MCHC 34.1 RDW 13.4 RDW Differential 44.5 H Plt Count 239 MPV 10.5 Immature Gran % (Auto) 0.200 Neut % (Auto) 62.6 Lymph % (Auto) 25.9 [place] % (Auto) 9.8 Eos % (Auto) 1.0 Baso % (Auto) 0.5 Absolute Neuts (auto) 3.8 Absolute Lymphs (auto) 1.58 Total Counted Not Reportable PT 13.0 INR 1.0 APTT 26.8 Sodium 140 Potassium 4.4 Chloride 105 Carbon Dioxide 28.0 Anion Gap 7 BUN 12 Creatinine 0.66 Estim Creat Clear Calc 89.17 Est GFR (MDRD) Af Amer 120 Est GFR (MDRD) Non-Af 99 BUN/Creatinine Ratio 18.1 Glucose 93 Calcium 9.3 Troponin I < 0.015 POC Glucose 10/21/18 13:32 POC Glucose 104 EKG reviewed and showed normal sinus rhythm with no acute changes. Clinical Impression(s) from Imaging Studies Brain CT 10/21/18 13:39 IMPRESSION: No acute intracranial abnormality. Chronic left thalamic and cerebellar infarctions. Electronically Signed: Zoila Romero MD at 14:02 EDT Tel , Service support , Assessment/Plan All Active Problems (Last Updated 10/21/18 @ 17:00 by Arden Chaudhry DO) Hx of ischemic vertebrobasilar artery brainstem stroke (Acute) Fluency disorder following cerebrovascular disease (Acute) Balance problem (Acute) History of stroke (Acute) 1. Suspected stroke NIH 1 for right upper quadrant visual loss, though this is chronic Patient with recurrent symptoms similar to what she experienced 3 years ago with her thalamic and cerebellar stroke This could also be related with the metabolic etiology that may be exacerbating her prior stroke symptoms or even anxiety. Priority though is to rule out new stroke. Patient has a [employer] baclofen intrathecal pump model #[id number]. The device is MRI compatible. Explained that they will likely need the tech to come in and program the MRI so that it can be functional. Informed her that the MRI would not be able to be performed until October 23. Patient was given the option to go to [facility], where her neurologist is to have this work-up performed. Patient declined stating that she prefer to stay here. I did inform patient and her that I do not have any prior experience anyone with her device in regards to expectations but told them specifically that regions that have had pacemakers or defibrillators are MRI compatible that the tech had to come in to program the MRI for work. Additionally, patient will have an echocardiogram, physical, occupational therapy evaluate and treat. Will consult neurology who will not see patient until the first. Check fasting lipid panel. Check medical records from [facility] as well as [facility] in [facility]. 2. VTE prophylaxis: Patient moderate risk. Lovenox. Case discussed with the patient's at bedside. Code Visit Inpatient E&M: [id number] Init Hosp L3
[2018-10-21] MEDS: 0.9% Normal Saline 1,000 ML 150 ML IV (18:58)
[2018-10-21] MEDS: 0.9% NaCl Peripheral Flush Adult/Peds IV (18:58)
[2018-10-21 21:29] LABS: Bacteria 0 SEEN /hpf (None Seen); Mucous, Urine 0 SEEN /hpf (<or=2+); Red Blood Cells-Urine 0 SEEN /hpf (0-5); White Blood Cells 0 SEEN /hpf (0-5)
[2018-10-21 21:33] LABS: Color, Urine Yellow (Yellow); Glucose, Dipstick Normal (Normal); Ketone-Dipstick Negative (Negative); Leukocyte Esterase-Dipstick Negative /ul (Negative); Nitrite-Dipstick Negative (Negative); Occult Blood-Urine Negative /ul (Negative); Protein-Dipstick Negative (Negative); Specific Gravity, Urine 1.005 (1.002-1.030); Urine Bilirubin Dipstick Negative (Negative); Urine Clarity Clear (Clear); Urine Urobilinogen Normal (Normal)
[2018-10-21 21:40] LABS: Squamous Epithelial Cells - UA 0-5 SEEN /hpf (5-10)
[2018-10-21] MEDS: Aspirin E.C. 81 MG Tablet PO (21:57)
[2018-10-21] MEDS: Atorvastatin Calcium 80 MG Tablet PO (21:57)
[2018-10-21] MEDS: clonazePAM 0.5 MG Tablet 1 MG PO (21:59)
[2018-10-22] VITALS (11 sets, daily range): BP systolic 95–144; BP diastolic 57–88; PULSE 55–93; RESP 16–18; TEMP 36.4–37.1; O2SAT 96–97; BMI 19.5
[2018-10-22 06:03] LABS: Cholesterol 204 mg/dL (200); High Density Lipoprotein 52 mg/dL; Triglycerides 148 mg/dL; Very Low Density Lipoprotein 30 mg/dL (5-40)
[2018-10-22] MEDS: Pantoprazole Sodium 20 MG Tablet PO (10:38)
[2018-10-22] MEDS: Sertraline 100 MG Tablet 150 MG PO (10:38)
[2018-10-22] MEDS: Clopidogrel Bisulfate 75 MG Tablet PO (13:11)
--- NOTE | 2018-10-22 13:20 | CASEMGMT ---
insurance review for [employer] Facilities: [facility], [facility], [facility], [facility], [facility], [facility]. Bronwyn KOVACSN RN ACM
--- NOTE | 2018-10-22 14:23 | DS.PCM_ITS ---
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 Chronic left thalamic and cerebellar infarctions. 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 She had a sudden onset of nausea, a new lean to the left side, she had diplopia, and difficulty finding her words. The patient said these were the same symptoms she had when she had her stroke 3 years ago. Her neurologist is Dr. Parham at [facility]. she had been doing well up until the day of presentation, only with her chronic right-sided muscle spasticity. She has been taking a baby aspirin aspirin at home, not on Plavix or statin at home. The patient underwent a CT of the brain which only demonstrated her old left cerebellar and thalamic infarcts. She was admitted to the PCU with concerns for acute CVA. Her acute symptoms completely resolved. The patient was concerned about having further work-up here, stating that even though her baclofen pump is MRI compatible every time she has had an MRI in the past she has immediately needed to go to have it checked by her neurologist. I discussed the case with our neurologist here and he felt comfortable having the MRI of the brain tomorrow, and in the meantime obtaining CT angiogram of the head and neck. He also advised starting Plavix along with the patient's baby aspirin. The patient refused to have further imaging done here and requested to be transferred to [facility] so that she could be evaluated by her neurologist. I called the [facility] transfer line and the patient was accepted by . She was discharged in stable condition. This patient was seen by Gio Nava PA-C under the supervision of Doctor Rm. [] Patient Problems: Active and Suspected Problems (Last Updated 10/21/18 @ 17:00 by Arden Chaudhry DO) Fluency disorder following cerebrovascular disease (Acute) Balance problem (Acute) History of stroke (Acute) - Physical Exam General: Alert, Oriented x3, Cooperative HEENT: Atraumatic, PERRLA, EOMI, Normocephalic Neck: Supple, No JVD, Negative Carotid Bruits Lungs: Clear to auscultation, Normal air movement Cardiovascular: Regular rate, No murmurs Abdomen: Bowel Sounds Present, Soft, Non Tender Extremities: No edema, Capillary Refill Less than 3 Seconds, - - Right-sided muscle spasms Skin: No rashes, No breakdown Musculoskeletal: No Tenderness to Palpation of Joints or Extremities Neurological: Cranial nerves II-XII grossly intact Psych/Mental Status: Normal Affect, Appropriate, Alert and oriented to time, place, person, mood and affect Vital Signs Temp Pulse Resp BP Pulse Ox 98.7 F 83 16 123/70 H 96 10/22/18 10:30 10/22/18 10:30 10/22/18 10:30 10/22/18 10:30 10/22/18 10:30 Oxygen Delivery Method Room Air Weight: 121 lb Body Mass Index (BMI) 19.5 Finger Stick Blood Glucose 104 Intake and Output for Last 24 Hours 10/20/18 10/21/18 10/22/18 23:59 23:59 23:59 Intake Total 2001 522 / 522 Output Total 1400 / 1400 Balance 2001 -878 / -878 Laboratory Tests Past 24 Hrs 10/21/18 10/21/18 10/21/18 14:10 14:10 14:10 WBC 6.1 RBC 4.63 Hgb 14.5 Hct 42.5 MCV 91.8 MCH 31.3 MCHC 34.1 RDW 13.4 RDW Differential 44.5 H Plt Count 239 MPV 10.5 Immature Gran % (Auto) 0.200 Neut % (Auto) 62.6 Lymph % (Auto) 25.9 [place] % (Auto) 9.8 Eos % (Auto) 1.0 Baso % (Auto) 0.5 Absolute Neuts (auto) 3.8 Absolute Lymphs (auto) 1.58 Total Counted Not Reportable PT 13.0 INR 1.0 APTT 26.8 Sodium 140 Potassium 4.4 Chloride 105 Carbon Dioxide 28.0 Anion Gap 7 BUN 12 Creatinine 0.66 Estim Creat Clear Calc 89.17 Est GFR (MDRD) Af Amer 120 Est GFR (MDRD) Non-Af 99 BUN/Creatinine Ratio 18.1 Glucose 93 Calcium 9.3 Troponin I < 0.015 Triglycerides Cholesterol LDL Cholesterol VLDL Cholesterol HDL Cholesterol Urine Color Urine Clarity Urine pH Ur Specific [place] Urine Protein Urine Glucose (UA) Urine Ketones Urine Occult Blood Urine Nitrite Urine Bilirubin Urine Urobilinogen Ur Leukocyte Esterase Urine RBC Urine WBC Ur Squamous Epith Cells Urine Bacteria Urine Mucus 10/21/18 10/22/18 20:58 05:10 WBC RBC Hgb Hct MCV MCH MCHC RDW RDW Differential Plt Count MPV Immature Gran % (Auto) Neut % (Auto) Lymph % (Auto) [place] % (Auto) Eos % (Auto) Baso % (Auto) Absolute Neuts (auto) Absolute Lymphs (auto) Total Counted PT INR APTT Sodium Potassium Chloride Carbon Dioxide Anion Gap BUN Creatinine Estim Creat Clear Calc Est GFR (MDRD) Af Amer Est GFR (MDRD) Non-Af BUN/Creatinine Ratio Glucose Calcium Troponin I Triglycerides 148 Cholesterol 204 H LDL Cholesterol 122 VLDL Cholesterol 30 HDL Cholesterol 52 Urine Color Yellow Urine Clarity Clear Urine pH 7.0 Ur Specific [place] 1.005 Urine Protein Negative Urine Glucose (UA) Normal Urine Ketones Negative Urine Occult Blood Negative Urine Nitrite Negative Urine Bilirubin Negative Urine Urobilinogen Normal Ur Leukocyte Esterase Negative Urine RBC 0 SEEN Urine WBC 0 SEEN Ur Squamous Epith Cells 0-5 SEEN Urine Bacteria 0 SEEN Urine Mucus 0 SEEN Discharge Diet: - - As directed by receiving facility Discharge Activity: - - As directed by receiving facility Home Medications: Medications to take at Discharge Omeprazole [Prilosec] 20 mg PO DAILY 05/03/16 Clonazepam [Klonopin] 1 mg PO QHS 11/04/17 Sertraline HCl [Zoloft] 150 mg PO DAILY 11/04/17 Aspirin [Aspir 81] 81 mg PO DINNER 10/21/18 Baclofen Pump 146 mcg DAILY 10/21/18 Primary Care Physician: Chris Bishop [Primary Care Provider] - Please follow up with your Primary Care Physician in: As directed Disposition: Acute care Hospital Minutes spent on discharge:: 40 Patient Condition:: Stable Medical Necessity - Tobacco Use Smoking Status: Never smoker Tobacco Use: Non-smoker Meaningful Use Info Meaningful Use Diagnoses (Choose all that apply): None applicable <Paintsil,Sheridan - Last Filed: 10/22/18 16:23> Discharge Date and Diagnosis - Primary Discharge Diagnosis Active and Suspected Problems (Last Updated 10/21/18 @ 17:00 by Arden Chaudhry DO) Fluency disorder following cerebrovascular disease (Acute) Balance problem (Acute) History of stroke (Acute) Hospital Course and Treatment Imaging Results: 10/23/18 08:30 Brain W/WO Contrast [MRI] Routine Summary of Care Provided: This patient was seen in conjunction with LAUAR Thomas. I have independently interviewed and examined the patient and reviewed pertinent historical, laboratory, and other data. Please refer to LAURA Thomas note for his patient's presentation, findings, and recommendations. I have reviewed and his note and concur with his documentation The patient is a 53 year old F with past medical history of left side of stomach cancer Labella infarction, history of chronic right-sided spasm status post baclofen pump, who comes in with nausea, ataxia, diplopia and difficulty finding her words. Patient admits that these were the same symptoms that she had 3 years ago when she had her stroke. She refused to have an MRI because of concerns of having to have her baclofen pump reevaluated almost immediately. Her admitting CT of the brain showed old left cerebellar and thalamic infarct. She was admitted to telemetry floor with no acute events. Her acute symptoms appear to have resolved. It was recommended that patient had a CTA of the head and neck. Patient did not want to have a CT of the head and neck as she said the last time and did not show much. She knows that the MRI is preferable. She will be transferred to the [facility] to be evaluated by her neurologist and have MRI done and soon after that have her baclofen pump checked. She was accepted to [facility]. She was transferred in a stable state. Physical Exam: Gen: Comfortable, not pale, not jaundiced CVS:HS I +II, regular, no murmurs RESP:CTA GI: BS present and normal, soft, nontender, no palpable organs EXT:No edema BEEF LUGGER: Unable to to 12 intact, power is 5/5 in all extremities, tremors in the right lower extremity, baclofen pump in situ, did not work patient ASSESSMENT: 1. Suspected CVA, requires MRI of the brain, MRA of the head and neck 2. Chronic right-sided spasm status post baclofen pump - Physical Exam Vital Signs Temp Pulse Resp BP Pulse Ox 98.5 F 69 16 104/75 97 10/22/18 14:30 10/22/18 15:12 10/22/18 14:30 10/22/18 14:30 10/22/18 14:30 Oxygen Delivery Method Room Air Weight: 54.885 kg Body Mass Index (BMI) 19.5 Finger Stick Blood Glucose 104 Intake and Output for Last 24 Hours 10/20/18 10/21/18 10/22/18 23:59 23:59 23:59 Intake Total 2001 522 / 522 Output Total 1400 / 1400 Balance 2001 -878 / -878 Laboratory Tests Past 24 Hrs 10/21/18 10/22/18 20:58 05:10 Triglycerides 148 Cholesterol 204 H LDL Cholesterol 122 VLDL Cholesterol 30 HDL Cholesterol 52 Urine Color Yellow Urine Clarity Clear Urine pH 7.0 Ur Specific [place] 1.005 Urine Protein Negative Urine Glucose (UA) Normal Urine Ketones Negative Urine Occult Blood Negative Urine Nitrite Negative Urine Bilirubin Negative Urine Urobilinogen Normal Ur Leukocyte Esterase Negative Urine RBC 0 SEEN Urine WBC 0 SEEN Ur Squamous Epith Cells 0-5 SEEN Urine Bacteria 0 SEEN Urine Mucus 0 SEEN Code Visit Inpatient E&M: 40721 Disch Hosp
[2018-10-22] MEDS: Atorvastatin Calcium 80 MG Tablet PO (21:44)
[2018-10-22] MEDS: clonazePAM 0.5 MG Tablet 1 MG PO (21:44)
[2018-10-22] MEDS: Aspirin E.C. 81 MG Tablet PO (21:44)
[2018-10-23 00:04] VITALS: BMI 19.5
[2018-10-23 01:30] VITALS: BP 105/62; PULSE 60; RESP 18; TEMP 36.7; O2SAT 96
--- NOTE | 2018-10-23 02:45 | NURSING ---
Pt was transferred by [facility] on stretcher pt stable no distress noted. monitoring and evaluation advisor removed. At this time has pt belongings. Report called to Narciso Britton RN at [facility], [address], Room 72-1.
== END 2018-10-23 02:45 | disposition short-term general hospital (02) | DRG 65 ==
LOC: ED 15:29 → PCU 17:58
PROVIDERS: Emergency Provider Emergency Medicine; Family Provider Family Medicine; PCP Family Medicine; Visit Provider Internal Medicine
DX: I63.9 Cerebral infarction, unspecified (principal); Z68.1 Body mass index [BMI] 19.9 or less, adult; R64 Cachexia; I69.392 Facial weakness following cerebral infarction; F32.9 Major depressive disorder, single episode, unspecified; I69.323 Fluency disorder following cerebral infarction; K21.9 Gastro-esophageal reflux disease without esophagitis; I69.398 Other sequelae of cerebral infarction; M62.838 Other muscle spasm
CPT/HCPCS: 36415; 70450; 80048; 80061; 81001; 82962; 84484; 85025; 85610; 85730; 87086; 92610; 93005; 97161; 97165; 97802; 99285; J7030; A4216